=== PATIENT | female | born 1940 | race Caucasian/White ===

== ENCOUNTER 2018-06-07 16:23 | Inpatient (IN) | payer OTHER ==
--- NOTE | 2018-06-07 16:58 | PDOC ---
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 She was sent from [facility] today because despite oral vancomycin treatment, she continues to have multiple loose stools per day. Sr Summers states that the diarrhea is her only current medical problem. She reports about 7 bowel movements per day; she denies any abdominal pain, fevers, nausea or vomiting. She reports that she has been taking medication for the diarrhea but that it has not helped at all. She has no other complaints. Per notes sent from [facility], Sr Summers initially improved on a course of oral vancomycin but again had several episodes of watery diarrhea yesterday despite continued treatment. She additionally was noted to be hypotensive this morning, though her BP was not recorded in the note. Notes by Dr Levin, her PMD, report recent weight loss as well. Past History - Past Medical History Allergies/Adverse Reactions: Allergies Allergy/AdvReac Type Severity Reaction Status Date / Time No Known Allergies Allergy Verified 06/07/18 17:01 Review of Systems - Review of Systems Comments:: General: No fevers, no chills, no weight or appetite change, no malaise HEENT: No changes in vision, no changes in hearing, no congestion, no sore throat CV: No chest pain, no palpitations, no LE edema Pulm: No SOB, no cough, no wheezing GI: No nausea or vomiting. +cdiff : No frequency, no urgency, no dysuria Musc: No back pain, no joint swelling. +frequent falls Skin: No rash, no lesions, no erythema Endo: No excessive thirst, no heat/cold intolerance. h/o hypoparathyroidism Heme: No unusual bruising or bleeding, no swollen glands Neuro: No syncope, no numbness/tingling, no focal weakness Vasc: No claudication Psych: No recent change in mood, no SI or HI. +h/o bipolar *Physical Exam - Physical Exam Comments: General: Comfortable, no acute distress HEENT: PERRL, EOMI, MMM, voice normal, normal neck ROM Cards: RRR, no murmur appreciated Pulm: Comfortable on room air, clear to auscultation bilaterally Abd: Soft, nontender, nondistended Ext: 1+ pitting BLE edema. ROM intact. Strength 5/5 and equal bilaterally Vasc: Extremities WWP. Palpable radial and pedal pulses bilaterally Neuro: A&Ox3, CN grossly intact, speech slow but logical, motor/sensory grossly intact and symmetric. 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 She has been receiving treatment since late April but continues to have multiple episodes of diarrhea per day. - Labs including confirmatory test for cdiff sent from [facility] - Will recheck CBC and electrolytes as previous labs from 04/22/18 - Will call [facility] to discuss with PMD 06/07/18 18:03 - Dr Levin could not be reached, will plan to admit to obs for ID consult mentioned in progress note from earlier today. - Hospitalist paged for admission 06/07/18 20:31 - Labs returned, CBC unremarkable. BMP notable for potassium 2.8. Given 40mEq PO potassium in ED - Signed out patient to medicine team. Will order EKG, CXR, 1L NS bolus while waiting for available bed on floor. Discussed with Dr Ashton. *DC/Admit/Observation/Transfer Diagnosis at time of Disposition: Clostridium difficile diarrhea, Hypokalemia - Discharge Dispostion Decision to Admit order: Yes - Referrals Referrals: Abel Levin MD [Primary Care Provider] - - Patient Instructions - Post Discharge Activity
--- NOTE | 2018-06-07 19:03 | PDOC ---
Attending Attestation - HPI HPI: 06/07/18 19:11 The patient is a 77 year old female, with a significant past medical history of CKD, HTN, GERD, Polio w/ residual weakness, hypoparathyroidism, Cdiff (04/22/18) , who presents to the emergency department via EMS from [facility] with persistent diarrhea despite treatment with vancomycin and flagyl for C.diff diagnosed 28 days ago. As per the [place] records, the patient was sent here for evaluation by infectious disease. The patient denies chest pain, shortness of breath, headache and dizziness. The patient denies fever, chills, nausea, vomit, and constipation.The patient denies dysuria, frequency, urgency and hematuria. 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 No toxic habits. PCP - Dr. Levin - Physicial Exam PE: 06/07/18 19:13 GENERAL: Well developed, well nourished. Awake and alert. No acute distress. HEENT: Normocephalic, atraumatic. PERRLA, EOMI. No conjunctival pallor. Sclera are non- icteric. Moist mucous membranes. Oropharynx is clear. NECK: Supple. Full ROM. No JVD. Carotid pulses 2+ and symmetric, without bruits. No thyromegaly. No lymphadenopathy. CARDIOVASCULAR: Regular rate and rhythm. No murmurs, rubs, or gallops. Distal pulses are 2+ and symmetric. PULMONARY: No evidence of respiratory distress. Lungs clear to auscultation bilaterally. No wheezing, rales or rhonchi. ABDOMINAL: +slightly protuberant. Soft. Non-tender. Non-distended. No rebound or guarding. No organomegaly. Normoactive bowel sounds. MUSCULOSKELETAL Normal range of motion at all joints. No bony deformities or tenderness. No CVA tenderness. EXTREMITIES: No cyanosis. No clubbing. No edema. No calf tenderness. SKIN: Warm and dry. Normal capillary refill. No rashes. No jaundice. NEUROLOGICAL: Alert, awake, appropriate. Cranial nerves 2-12 intact. Normoreflexic in the upper and lower extremities. Normal speech. Toes are down-going bilaterally. Gait is normal without ataxia. PSYCHIATRIC: Cooperative. Good eye contact. Appropriate mood and affect. - Medical Decision Making 06/07/18 19:13 Documentation prepared by Stacey Valentine, acting as medical social consultant for Brittany Ashton MD/ <Stacey Valentine - Last Filed: 06/07/18 19:11> - Resident Resident Name: Blanca Mensah - ED Attending Attestation I have performed the following: I have examined & evaluated the patient, The case was reviewed & discussed with the resident, I agree w/resident's findings & plan, Exceptions are as noted - Medical Decision Making K=2.8 and is being treated 06/07/18 19:51 plan ADMIT med/surg 06/07/18 20:05 <Brittany Ashton - Last Filed: 06/07/18 20:05>
[2018-06-07 19:19] LABS: HEMATOCRIT 38.9 % (32.4-45.2); HEMOGLOBIN 13.1 GM/dL (10.7-15.3); MCH 30.3 pg (25.7-33.7); MCHC 33.7 g/dl (32.0-36.0); MEAN CELL VOLUME 90.1 fl (80-96); MEAN PLT VOLUME 8.9 fl (7.5-11.1); PLATELET COUNT 173 K/MM3 (134-434); RBC 4.32 M/mm3 (3.60-5.2); RDW 14.1 % (11.6-15.6); WHITE BLOOD COUNT 5.6 K/mm3 (4.0-10.0)
[2018-06-07 19:48] LABS: ANION GAP 9 (8-16); BLOOD UREA NITROGEN 20 mg/dL (7-18); CALCIUM 9.2 mg/dL (8.5-10.1); CHLORIDE 114 mmol/L (98-107); CO2 22 mmol/L (21-32); CREATININE 1.9 mg/dL (0.55-1.02); GLUCOSE,RANDOM 87 mg/dL (74-106); MAGNESIUM 2.1 mg/dL (1.8-2.4); PHOSPHOROUS 2.8 mg/dL (2.5-4.9); SODIUM 145 mmol/L (136-145)
[2018-06-07 19:57] LABS: POTASSIUM 2.8 mmol/L (3.5-5.1)
[2018-06-07] MEDS ORDERED: POTASSIUM CHLORIDE TABS 20 MEQ TABLET.ER (FP) PO ONE (19:58)
[2018-06-07] MEDS ORDERED: POTASSIUM CHLORIDE ORAL LIQUID 20 MEQ/15 ML PO ONE (20:00)
[2018-06-07] MEDS ORDERED: POTASSIUM CHLORIDE ORAL LIQUID 20 MEQ/15 ML ONE (20:06)
[2018-06-07] MEDS ORDERED: SODIUM CHLORIDE 0.9% 500 ML INFUS.BAG IV ONE (20:13)
--- NOTE | 2018-06-07 21:45 | HP ---
CHIEF COMPLAINT: watery diarrhea, on PO vanco for confirmed C-dif PCP: Dr. Levin HISTORY OF PRESENT ILLNESS: 77 yo female with significant PMH of recent C-dif (04/22 refractory to flagyl, has now received 28 days po vanco), HTN, Bipolar disorder, Primary hypoparathyroidism, GERD, polio w/ residual weakness, glaucoma, and CKD presents to the ED from [facility] with complaint of watery diarrhea yesterday and today that is worse than her recent baseline. 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 She was awake in bed and alert as well as following commands and reacting to me and smiling, though she did not answer any questions while I was seeing her. She comes today due to presumed refractory C-dif. She was originally diagnosed in April and placed on Flagyl, which failed. She has now been on oral vanco for 28 days. The [place] record states that she was improving, however yesterday she began having worsening watery diarrhea X7. She was sent here by her primary in order to have an ID consult. 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 Family History: Allergies No Known Allergies Allergy (Verified 06/07/18 17:01) HOME MEDICATIONS: REVIEW OF SYSTEMS CONSTITUTIONAL: weight change Absent: fever, chills, diaphoresis, generalized weakness, malaise, loss of appetite, HEENT: Absent: rhinorrhea, nasal congestion, throat pain, throat swelling, difficulty swallowing, mouth swelling, ear pain, eye pain, visual changes CARDIOVASCULAR: Absent: chest pain, syncope, palpitations, irregular heart rate, lightheadedness , peripheral edema RESPIRATORY: Absent: cough, shortness of breath, dyspnea with exertion, orthopnea, wheezing, stridor, hemoptysis GASTROINTESTINAL: diarrhea Absent: abdominal pain, abdominal distension, nausea, vomiting, , constipation, melena, hematochezia GENITOURINARY: Absent: dysuria, frequency, urgency, hesitancy, hematuria, flank pain, genital pain MUSCULOSKELETAL: Absent: myalgia, arthralgia, joint swelling, back pain, neck pain SKIN: Absent: rash, itching, pallor HEMATOLOGIC/IMMUNOLOGIC: Absent: easy bleeding, easy bruising, lymphadenopathy, frequent infections ENDOCRINE: Absent: unexplained weight gain, unexplained weight loss, heat intolerance, cold intolerance NEUROLOGIC: Absent: headache, focal weakness or paresthesias, dizziness, unsteady gait, seizure, mental status changes, bladder or bowel incontinence PSYCHIATRIC: Absent: anxiety, depression, suicidal or homicidal ideation, hallucinations. PHYSICAL EXAMINATION Vital Signs - 24 hr 06/07/18 16:40 Temperature 98.7 F Pulse Rate 52 L Respiratory 16 Rate Blood Pressure 120/79 O2 Sat by Pulse 100 Oximetry (%) GENERAL: Awake and alert, no acute distress HEAD: Normocephalic, atraumatic. EYES: PERRL, no scleral icterus EARS, NOSE, THROAT: oropharynx clear without exudates. Moist mucous membranes. NECK: supple without lymphadenopathy LUNGS: CTA b/l, no crackles or wheezes HEART: Regular rate and rhythm, normal S1 and S2 without murmur, rub or gallop. ABDOMEN: Soft, nontender to palpation, normoactive bowel sounds MUSCULOSKELETAL: No bony deformities or tenderness. No CVA tenderness. UPPER EXTREMITIES: 2+ pulses, warm, well-perfused. No cyanosis. No clubbing. No peripheral edema. LOWER EXTREMITIES: 2+ pulses, warm, well-perfused. No calf tenderness. No peripheral edema. NEUROLOGICAL: Cranial nerves II-XII grossly intact. Not speaking to me, though reported normal earlier. SKIN: Warm, dry, normal turgor, no rashes or lesions noted Laboratory Results - last 24 hr 06/07/18 06/07/18 07:01 07:01 WBC 5.6 RBC 4.32 Hgb 13.1 Hct 38.9 MCV 90.1 MCH 30.3 MCHC 33.7 RDW 14.1 Plt Count 173 MPV 8.9 Sodium 145 Potassium 2.8 L* Chloride 114 H Carbon Dioxide 22 Anion Gap 9 BUN 20 H Creatinine 1.9 H Creat Clearance w eGFR 25.70 Random Glucose 87 Calcium 9.2 Phosphorus 2.8 Magnesium 2.1 ASSESSMENT/PLAN: 77 yo female with diagnosed C-dif in April on PO Vanco, PMH HTN, Bipolar disorder , Primary hypoparathyroidism, GERD, polio w/ residual weakness, glaucoma, and CKD, placed in observation for ID consult for chronic diarrhea, possibly refractory C-dif vs other bacterial or parasitic causes. Recurrent Diarrhea -Could be refractory c-dif or other bacterial vs parasitic causes -ID consult ordered -Stool ova and parasites -consider E. coli, Shigella, salmonella -Cdif toxin and Ag -Could also be inflammatory though less likely with recent hx C-dif -stool leukocytes -CBC with differential to check for eosinophilia -Restart current dose of Vanco 250 mg PO Q6 -add flagyl 500 mg IV Q8 for broader coverage TARA -vs CKD -Cr 1.9 -Fluid resuscitation -Renal US -Urine lytes - Hypokalemia -K 2.8 -Given 40 mEq PO in ED -Repleting in fluids -ECG ordered -BMP in AM FEN -Fluids: 1L NS in ED, NS @ 75 cc/hr -Electrolytes: as above, replete, BMP in AM -Nutrition: Regular diet DVT Prophylaxis -Heparin 5000 units SQ TID Disposition Observation until ID recommendation Visit type - Emergency Visit Emergency Visit: Yes ED Registration Date: 06/07/18 Care time: The patient presented to the Emergency Department on the above date and was hospitalized for further evaluation of their emergent condition. - New Patient This patient is new to me today: Yes Date on this admission: 06/08/18 - Critical Care Critical Care patient: No Hospitalist Screening - Colonoscopy Questionnaire Colonoscopy Questionnaire: Colonoscopy Questionnaire - Patient: 50 - 75 years old and never had a screening colonoscopy: No History of colon or rectal polyps, or CA: No History of IBD, Crohn's disease or UC: No History of abdominal radiation therapy as a child: No - Relative: 1 with colon or rectal CA, or polyps at age 60 or younger: No Colon or rectal CA diagnosed at age 45 or younger: No Multiple relatives with colon or rectal CA: No - Outcome: Screening Result: Negative Screen
[2018-06-07] MEDS ORDERED: CHOLESTYRAMINE/ASPARTAME 4 GM PACKET PO SCH (22:00)
[2018-06-07] MEDS ORDERED: SERTRALINE HCL 50 MG TABLET (FP) PO SCH (22:00)
[2018-06-08] MEDS ORDERED: VANCOMYCIN 250 MG/5 ML ORAL SOLUTION PO SCH
[2018-06-08] MEDS ORDERED: HEPARIN NA (PORCINE) 5,000 UNITS/ML 1ML VIAL ONE (00:24)
[2018-06-08] MEDS: LATANOPROST 0.005% OPHTH SOLN 2.5ML BOTTLE OU SCH ×2 (02:05→21:24)
[2018-06-08] MEDS: SERTRALINE HCL 50 MG, SERTRALINE HCL 25 MG PO SCH ×2 (02:06→22:34)
[2018-06-08] MEDS: risperiDONE 0.5 MG TABLET (FP) PO SCH ×2 (02:06→21:24)
--- NOTE | 2018-06-08 03:43 | PN ---
Teaching Attending Note Name of Resident: Francesco Vasquez ATTENDING PHYSICIAN STATEMENT I saw and evaluated the patient. Chart, data, imaging reviewed. I reviewed the resident's note and discussed the case with the resident. I agree with the resident's findings and plan as documented. SUBJECTIVE: 77yo woman with a PMH of CKD, HTN, bipolar disorder, primary hypoparathyroidism , GERD, frequent falls, h/o polio with residual weakness, glaucoma and diagnosis of cdiff colitis diagnosed in [place] on 04/22/18 s/p 10 days of flagyl and then switched to PO vancomycin up until the present. Patient had worsening of her diarrhea with up to 7 BM per day and thus was brought to the hospital. There is no hx of recent travels or exotic foods. OBJECTIVE: Last Vital Signs Temp Pulse Resp BP Pulse Ox 98.5 F 89 19 118/78 100 06/08/18 02:09 06/08/18 02:09 06/08/18 02:09 06/08/18 02:09 06/07/18 16:40 general -nad, no resp distress heent- dry oral mucosa, blackish tongue, poor oral hygiene neck -supple cv-s1+s2+rrr chest- cta b/l abdomen- soft, nt, hyperactive bowel sounds ext- no pedal edema Abnormal Lab Results 06/07/18 07:01 Potassium 2.8 L* Chloride 114 H BUN 20 H Creatinine 1.9 H ekg - reviewed by me- nsr cxr - reviewed by me ASSESSMENT AND PLAN: 77yo woman with persistent diarrhea- cdiff colitis was diagnosed at [place], currently with worsening symptoms despite po vancomycin #Diarrhea-chronic, presumed to be secondary to severe cdiff, possible treatment failure, r/o other causes including bacterial, viral, parasitic. -send stool culture, wbc, O,P -send stool for Cdiff pcr -send CBC with dif -IV fluid hydration -BRAT diet -ID consult -contact isolation, strict handwashing -PO vancomycin 250mg PO q6hrs , metronidazole 500mg IV q8hrs #Hypokalemia -likely secondary to diarrhea, no EKG changes seen on EKG -replete K -recheck chemistry panel -telemetry for now # TARA vs CKD - unknown baseline cr. May be TARA- prerenal 2/2 to volume depletion from diarrhea -IV fluid hydration -send urine lytes, cr -i/o , daily weights -avoid nephrotoxic meds -renal u/s -dvt ppx- heparin sc -c/w chronic home medications
[2018-06-08 05:01] LABS: URINE APPEARANCE CLEAR; URINE BILIRUBIN NEGATIVE (<2.0 mg/dL); URINE COLOR LTYELLOW; URINE GLUCOSE (UA) NEGATIVE (NEGATIVE); URINE KETONE NEGATIVE (NEGATIVE); URINE LEUK ESTERASE NEGATIVE (NEGATIVE); URINE NITRITE NEGATIVE (NEGATIVE); URINE PROTEIN NEGATIVE (NEGATIVE); URINE UROBILINOGEN NEGATIVE mg/dL (0.2-1.0)
[2018-06-08] MEDS: SODIUM CHLORIDE 0.9%/KCL 20 MEQ/1,000 ML INFUS.BAG IV SCH ×2 (05:20→22:38)
[2018-06-08] MEDS: HEPARIN NA (PORCINE) 5,000 UNITS/ML 1ML VIAL SQ SCH ×4 (05:59→21:23)
[2018-06-08] MEDS: MAG HYDROX/ALH/SMC/DPHA/LIDO 240 ML MOUTHWASH MM SCH ×4 (06:02→19:00)
[2018-06-08] MEDS: VANCOMYCIN 250 MG/5 ML ORAL SOLUTION PO SCH ×4 (06:14→19:00)
[2018-06-08 07:07] VITALS: BMI 21.2
[2018-06-08 08:57] LABS: BASO % 0.2 % (0-2.0); EOS % 0.3 % (0-4.5); HEMATOCRIT 34.2 % (32.4-45.2); HEMOGLOBIN 11.6 GM/dL (10.7-15.3); LYMPH % 13.5 % (8-40); MCH 30.6 pg (25.7-33.7); MCHC 33.8 g/dl (32.0-36.0); MEAN CELL VOLUME 90.7 fl (80-96); MONO % 21.4 % (3.8-10.2); NEUT % 64.6 % (42.8-82.8); PLATELET COUNT 139 K/MM3 (134-434); RBC 3.77 M/mm3 (3.60-5.2); RDW 14.6 % (11.6-15.6); WHITE BLOOD COUNT 6.2 K/mm3 (4.0-10.0)
[2018-06-08 09:04] LABS: ANION GAP 8 (8-16); BLOOD UREA NITROGEN 20 mg/dL (7-18); CALCIUM 8.8 mg/dL (8.5-10.1); CHLORIDE 120 mmol/L (98-107); CO2 20 mmol/L (21-32); CREATININE 1.7 mg/dL (0.55-1.02); GLUCOSE,RANDOM 89 mg/dL (74-106); PHOSPHOROUS 2.7 mg/dL (2.5-4.9); SODIUM 148 mmol/L (136-145)
[2018-06-08] MEDS: amLODIPine BESYLATE 10 MG TABLET (FP) PO SCH (10:32)
[2018-06-08] MEDS: LACTOBACILLUS ACIDOPHILUS 1 TABLET PO SCH ×2 (10:32→19:04)
[2018-06-08] MEDS: RANITIDINE HCL 150 MG TABLET (FP) PO SCH (10:32)
[2018-06-08] MEDS: CYANOCOBALAMIN 1,000 MCG TABLET (FP) PO SCH (10:33)
[2018-06-08] MEDS ORDERED: PT OWN MED DRAWER 7, Y5N ONE ×2 (12:10→12:23)
--- NOTE | 2018-06-08 13:15 | PN ---
Progress Note (short form) - Note Progress Note: ID Consult dictated Probable recurrent C difficile Vancomycin 125mg po qid Contact precautions
[2018-06-08 15:10] LABS: ANISOCYTOSIS 1+; MACROCYTOSIS 0; PLATELET ESTIMATE DECREASED
--- NOTE | 2018-06-08 16:26 | EKG ---
Test Reason : Blood Pressure : / mmHG Vent. Rate : 087 BPM Atrial Rate : 087 BPM P-R Int : 158 ms QRS Dur : 088 ms QT Int : 372 ms P-R-T Axes : 056 035 -67 degrees QTc Int : 447 ms NORMAL SINUS RHYTHM CANNOT RULE OUT ANTERIOR INFARCT , AGE UNDETERMINED ABNORMAL ECG WHEN COMPARED WITH ECG OF 08-JUN-2018 00:57, NONSPECIFIC T WAVE ABNORMALITY NOW EVIDENT IN ANTERIOR LEADS Confirmed by Chris Schneider MD ([id number]) on 06/08/2018 4:26:02 PM Referred By: Confirmed By:Chris Schneider MD
--- NOTE | 2018-06-08 16:26 | EKG ---
Test Reason : Blood Pressure : / mmHG Vent. Rate : 078 BPM Atrial Rate : 078 BPM P-R Int : 152 ms QRS Dur : 086 ms QT Int : 378 ms P-R-T Axes : 063 052 051 degrees QTc Int : 430 ms NORMAL SINUS RHYTHM NONSPECIFIC ST AND T WAVE ABNORMALITY ABNORMAL ECG NO PREVIOUS ECGS AVAILABLE Confirmed by Chris Schneider MD ([id number]) on 06/08/2018 4:26:07 PM Referred By: Confirmed By:Chris Schneider MD
--- NOTE | 2018-06-08 17:36 | PN ---
Teaching Attending Note Name of Resident: Andrea Stephen ATTENDING PHYSICIAN STATEMENT I saw and evaluated the patient. I reviewed the resident's note and discussed the case with the resident. I agree with the resident's findings and plan as documented. SUBJECTIVE:conitnues to have loose BM reports 12 epiosdes. assoc adbominal distention. no episodes in the past. denies Cp, SOB, fever, chills, N/V no recent changes to medication OBJECTIVE: Last Vital Signs Temp Pulse Resp BP Pulse Ox 98 F 84 20 120/70 97 06/08/18 08:00 06/08/18 08:00 06/08/18 08:00 06/08/18 08:00 06/08/18 06:00 general NAD CV S1 S2 RRR no murmrur/rub/gallop Lungs CTA B/L no wheezing Abdomen soft NT slightly distended. normoactive BS ASSESSMENT AND PLAN: 77yo F wtih PMH CKD, HTN, bipolar, frequent falls presenting with diarrhea for 6 weeks already treated with 2 courses of Flagyl and started on vanco po with no improvement 1. Persistent diarrhea- probable recurrent cdiff however also consider malabsorption disorders. pt reports 12 episodes all loose, however RN reports only 1 since she came from the ER and it was semi-formed. Cdiff sent. vanco po, flagyl IV. contact precautions. ID consulted. will consider GI eval if doesnt imrpove. check stool for fecal fat. colonscopy 4 years ago +polyps which she reports as benign 2. Hypokalemia- due to diarrhea. replete 3. TAAR- due to dehydration. IVF. monitor. renal u/s pending. avoid nephrotoxic agents 4. HTN- controlled. cont home meds 5. bipolar- no signs of manic episode. cont home medications 6. DVT ppx- Hep sq
[2018-06-08] MEDS: DIVALPROEX NA *ER* EXTEND REL 250 MG TABLET.SA PO SCH (19:04)
[2018-06-08] MEDS: TIMOLOL MALEATE 0.5% GFS OPHTHALMIC SOLN 5 ML BOTTLE OU SCH (19:05)
--- NOTE | 2018-06-08 20:31 | PN ---
Physical Exam: SUBJECTIVE: Patient seen and examined and bedside. pt still having loose BM. says 7-12 epiosdes w/ feeling bloated. denies Fever, chills, CP, SOB, N/V, urinary sxs OBJECTIVE: Vital Signs Period Temp Pulse Resp BP Sys/St Pulse Ox Last 24 Hr 97.5 F-98.5 F 74-89 18-20 115-142/63-78 97-97 GENERAL: Awake and alert, no acute distress HEAD: NCAT EYES: PERRL, no scleral icterus EARS, NOSE, THROAT: MMM NECK: supple without lymphadenopathy LUNGS: CTA b/l, no crackles or wheezes HEART: RRR normal S1 and S2 without murmur, rub or gallop. ABDOMEN: Soft, mild distension, nontender to palpation, +BS MUSCULOSKELETAL: No bony deformities or tenderness. UPPER EXTREMITIES: 2+ pulses, warm, well-perfused. No cyanosis. No clubbing. No peripheral edema. LOWER EXTREMITIES: 2+ pulses, warm, well-perfused. No calf tenderness. No peripheral edema. NEUROLOGICAL: Cranial nerves II-XII grossly intact. SKIN: Warm, dry, normal turgor, no rashes or lesions noted Laboratory Results - last 24 hr 06/08/18 06/08/18 06/08/18 04:31 04:31 07:00 WBC RBC Hgb Hct MCV MCH MCHC RDW Plt Count MPV Absolute Neuts (auto) Neutrophils % Neutrophils % (Manual) Band Neutrophils % Lymphocytes % Lymphocytes % (Manual) Monocytes % Monocytes % (Manual) Eosinophils % Eosinophils % (Manual) Basophils % Basophils % (Manual) Myelocytes % (Man) Promyelocytes % (Man) Blast Cells % (Manual) Nucleated RBC % Metamyelocytes Hypochromia Platelet Estimate Polychromasia Poikilocytosis Anisocytosis Microcytosis Macrocytosis Sodium 148 H Potassium 3.0 L Chloride 120 H Carbon Dioxide 20 L Anion Gap 8 BUN 20 H Creatinine 1.7 H Creat Clearance w eGFR 29.22 Random Glucose 89 Calcium 8.8 Phosphorus 2.7 Magnesium 2.0 Urine Color Ltyellow Urine Appearance Clear Urine pH 5.0 Ur Specific [place] 1.010 Urine Protein Negative Urine Glucose (UA) Negative Urine Ketones Negative Urine Blood Negative Urine Nitrite Negative Urine Bilirubin Negative Urine Urobilinogen Negative Ur Leukocyte Esterase Negative Ur Random Sodium 18 Ur Random Potassium 11.8 Ur Random Chloride 52 08/07/18 08/07/18 07:00 12:25 WBC 6.2 RBC 3.77 Hgb 11.6 Hct 34.2 MCV 90.7 MCH 30.6 MCHC 33.8 RDW 14.6 Plt Count 139 MPV 9.0 Absolute Neuts (auto) 4.0 Neutrophils % 64.6 Neutrophils % (Manual) 61.9 Band Neutrophils % 2.1 Lymphocytes % 13.5 Lymphocytes % (Manual) 12.4 Monocytes % 21.4 H Monocytes % (Manual) 22 H Eosinophils % 0.3 Eosinophils % (Manual) 0.0 Basophils % 0.2 Basophils % (Manual) 1.0 Myelocytes % (Man) 1 Promyelocytes % (Man) 0 Blast Cells % (Manual) 0 Nucleated RBC % 0 Metamyelocytes 0 Hypochromia 0 Platelet Estimate Decreased Polychromasia 0 Poikilocytosis 0 Anisocytosis 1+ Microcytosis 1+ Macrocytosis 0 Sodium Cancelled Potassium Cancelled Chloride Cancelled Carbon Dioxide Cancelled Anion Gap Cancelled BUN Cancelled Creatinine Cancelled Creat Clearance w eGFR Cancelled Random Glucose Cancelled Calcium Cancelled Phosphorus Magnesium Urine Color Urine Appearance Urine pH Ur Specific [place] Urine Protein Urine Glucose (UA) Urine Ketones Urine Blood Urine Nitrite Urine Bilirubin Urine Urobilinogen Ur Leukocyte Esterase Ur Random Sodium Ur Random Potassium Ur Random Chloride Active Medications Generic Name Dose Route Start Last Admin Trade Name Freq PRN Reason Stop Dose Admin Amlodipine Besylate 10 mg 06/08/18 10:00 06/08/18 10:32 Norvasc - PO 10 mg DAILY ZAINAB Administration Cyanocobalamin 1,000 mcg 06/08/18 10:00 06/08/18 10:33 Vitamin B12 - PO 1,000 mcg DAILY ZAINAB Administration Divalproex Sodium 500 mg 06/09/18 10:00 Depakote *Er* - PO DAILY ZAINAB Heparin Sodium (Porcine) 5,000 unit 06/07/18 20:45 06/08/18 13:47 Heparin - SQ 5,000 unit TID ZAINAB Administration Potassium Chloride/Sodium Chloride 20 meq in 1,000 mls @ 100 mls/hr 06/08/18 03:15 06/08/18 05:20 Ns+20 Meq Kcl - IV 100 mls/hr ASDIR ZAINAB Administration Metronidazole 500 mg in 100 mls @ 100 mls/hr 06/08/18 06:00 08/07/18 18:09 Flagyl 500mg Premixed Ivpb - IVPB 100 mls/hr Q8H-IV ZAINAB Administration Lactobacillus Acidophilus 1 tab 06/07/18 20:45 06/08/18 19:04 Bacid - PO Not Given DAILY ZAINAB Latanoprost 1 drop 06/07/18 22:00 06/08/18 02:05 Xalatan 0.005% Eye Drops - OU 1 drop HS ZAINAB Administration Lidocaine/Aluminum/Magnesium/Simeth 5 ml 06/08/18 06:00 06/08/18 19:00 Magic Mouthwash *Sjr Formula* - MM 5 ml Q6HPO ZAINAB Administration Ranitidine HCl 75 mg 06/08/18 10:00 06/08/18 10:32 Zantac - PO 75 mg DAILY ZAINAB Administration Risperidone 0.75 mg 06/07/18 22:00 06/08/18 02:06 Risperdal - PO 0.75 mg HS ZAINAB Administration Sertraline HCl 50 mg/ 75 mg 06/07/18 22:00 06/08/18 02:06 Sertraline HCl 25 mg PO 75 mg HS ZAINAB Administration Timolol Maleate 1 drop 06/09/18 10:00 Timoptic Xe 0.5% OU DAILY ZAINAB Vancomycin HCl 250 mg 06/08/18 06:00 06/08/18 19:00 Vancomycin Oral Solution PO 250 mg Q6HPO ZAINAB Administration ASSESSMENT/PLAN: 77 yo female with 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 . #Recurrent Diarrhea - possibly having refractory C-dif vs other bacterial or parasitic causes. consider malabsorption disorders. pt reports 7-12 episodes all loose. Nurse reports 1 since pt came up from the ED -ID consult -Stool ova and parasites -consider E. coli, Shigella, salmonella -Cdif toxin and Ag - negative -PCR for C diff -Could also be inflammatory though less likely with recent hx C-dif -stool leukocytes -CBC with differential to check for eosinophilia -Restart current dose of Vanco 250 mg PO Q6 -flagyl 500 mg IV Q8 for broader coverage -consider GI eval if doesn't improve -check stool for fecal fat. -colonscopy 4 years ago w/ polyps which pt reports as benign -Contact precautions #TARA on CKD- 2/2 dehydration. -Cr 1.9 -IV fluids -Renal US - b/l chronic kidney disease changes -Urine lytes - -avoid nephrotoxic agents Hypokalemia - 2/2 diarrhea -K 2.8 ...3 at 6am -Given 40 mEq PO in ED -Repleting in fluids -ECG ordered -BMP in AM #bipolar- no signs of manic episode. -c/w home meds #HTN- controlled -c/w home meds #FEN -Fluids: 1L NS in ED, NS @ 75 cc/hr w/ K 20meq -Electrolytes: as above, replete, BMP in AM -Nutrition: Regular diet DVT Prophylaxis -Heparin 5000 units SQ TID Disposition -medsurg Visit type - Emergency Visit Emergency Visit: Yes ED Registration Date: 06/07/18 Care time: The patient presented to the Emergency Department on the above date and was hospitalized for further evaluation of their emergent condition. - New Patient This patient is new to me today: Yes Date on this admission: 06/08/18 - Critical Care Critical Care patient: No
[2018-06-09] MEDS: VANCOMYCIN 250 MG/5 ML ORAL SOLUTION PO SCH ×5 (00:09→23:03)
[2018-06-09] MEDS: MAG HYDROX/ALH/SMC/DPHA/LIDO 240 ML MOUTHWASH MM SCH ×5 (00:09→23:03)
[2018-06-09] MEDS: SODIUM CHLORIDE 0.9%/KCL 20 MEQ/1,000 ML INFUS.BAG IV SCH ×2 (06:12→10:49)
[2018-06-09] MEDS: HEPARIN NA (PORCINE) 5,000 UNITS/ML 1ML VIAL SQ SCH ×3 (06:12→21:32)
--- NOTE | 2018-06-09 08:39 | PN ---
Physical Exam: SUBJECTIVE: Patient seen and examined and bedside. pt still having loose BM. says 20 episodes w/ feeling bloated. per nurse, had 2 episodes of diarrhea. denies Fever, chills, CP, SOB, N/V, urinary sxs OBJECTIVE: Vital Signs Period Temp Pulse Resp BP Sys/St Pulse Ox Last 24 Hr 97.5 F-98.1 F 74-83 18-20 130-142/69-74 GENERAL: Awake and alert, no acute distress HEAD: NCAT EYES: PERRL, no scleral icterus EARS, NOSE, THROAT: some difficulty hearing at baseline. MMM NECK: supple without lymphadenopathy LUNGS: CTA b/l, no crackles or wheezes HEART: RRR normal S1 and S2 without m/r/g ABDOMEN: Soft, mild distension, nontender to palpation, +BS MUSCULOSKELETAL: No bony deformities or tenderness. UPPER EXTREMITIES: 2+ pulses, warm, well-perfused. No cyanosis. No clubbing. No peripheral edema. LOWER EXTREMITIES: 2+ pulses, warm, well-perfused. No calf tenderness. R foot mild selling NEUROLOGICAL: Cranial nerves II-XII grossly intact. SKIN: Warm, dry, normal turgor, no rashes or lesions noted Laboratory Results - last 24 hr 06/08/18 06/08/18 06/08/18 07:00 07:00 12:25 WBC 6.2 RBC 3.77 Hgb 11.6 Hct 34.2 MCV 90.7 MCH 30.6 MCHC 33.8 RDW 14.6 Plt Count 139 MPV 9.0 Absolute Neuts (auto) 4.0 Neutrophils % 64.6 Neutrophils % (Manual) 61.9 Band Neutrophils % 2.1 Lymphocytes % 13.5 Lymphocytes % (Manual) 12.4 Monocytes % 21.4 H Monocytes % (Manual) 22 H Eosinophils % 0.3 Eosinophils % (Manual) 0.0 Basophils % 0.2 Basophils % (Manual) 1.0 Myelocytes % (Man) 1 Promyelocytes % (Man) 0 Blast Cells % (Manual) 0 Nucleated RBC % 0 Metamyelocytes 0 Hypochromia 0 Platelet Estimate Decreased Polychromasia 0 Poikilocytosis 0 Anisocytosis 1+ Microcytosis 1+ Macrocytosis 0 Sodium 148 H Cancelled Potassium 3.0 L Cancelled Chloride 120 H Cancelled Carbon Dioxide 20 L Cancelled Anion Gap 8 Cancelled BUN 20 H Cancelled Creatinine 1.7 H Cancelled Creat Clearance w eGFR 29.22 Cancelled Random Glucose 89 Cancelled Calcium 8.8 Cancelled Phosphorus 2.7 Magnesium 2.0 Active Medications Generic Name Dose Route Start Last Admin Trade Name Weiq PRN Reason Stop Dose Admin Amlodipine Besylate 10 mg 06/08/18 10:00 06/08/18 10:32 Norvasc - PO 10 mg DAILY ZAINAB Administration Cyanocobalamin 1,000 mcg 06/08/18 10:00 06/08/18 10:33 Vitamin B12 - PO 1,000 mcg DAILY ZAINAB Administration Divalproex Sodium 500 mg 06/09/18 10:00 Depakote *Er* - PO DAILY ZAINAB Heparin Sodium (Porcine) 5,000 unit 06/07/18 20:45 06/09/18 06:12 Heparin - SQ 5,000 unit TID ZAINAB Administration Potassium Chloride/Sodium Chloride 20 meq in 1,000 mls @ 100 mls/hr 06/08/18 03:15 06/09/18 06:12 Ns+20 Meq Kcl - IV Not Given ASDIR ZAINAB Metronidazole 500 mg in 100 mls @ 100 mls/hr 06/08/18 06:00 06/09/18 01:22 Flagyl 500mg Premixed Ivpb - IVPB 100 mls/hr Q8H-IV ZAINAB Administration Lactobacillus Acidophilus 1 tab 06/07/18 20:45 06/08/18 19:04 Bacid - PO Not Given DAILY ZAINAB Latanoprost 1 drop 06/07/18 22:00 06/08/18 21:24 Xalatan 0.005% Eye Drops - OU 1 drop HS ZAINAB Administration Lidocaine/Aluminum/Magnesium/Simeth 5 ml 06/08/18 06:00 06/09/18 06:11 Magic Mouthwash *Sjr Formula* - MM 5 ml Q6HPO ZAINAB Administration Ranitidine HCl 75 mg 06/08/18 10:00 06/08/18 10:32 Zantac - PO 75 mg DAILY ZAINAB Administration Risperidone 0.75 mg 06/07/18 22:00 06/08/18 21:24 Risperdal - PO 0.75 mg HS ZAINAB Administration Sertraline HCl 50 mg/ 75 mg 06/07/18 22:00 06/08/18 22:34 Sertraline HCl 25 mg PO 75 mg HS ZAINAB Administration Timolol Maleate 1 drop 06/09/18 10:00 Timoptic Xe 0.5% OU DAILY ZAINAB Vancomycin HCl 250 mg 06/08/18 06:00 06/09/18 06:11 Vancomycin Oral Solution PO 250 mg Q6HPO ZAINAB Administration ASSESSMENT/PLAN: 77 yo female with 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 . #Recurrent Diarrhea - possibly having refractory C-dif vs other bacterial or parasitic causes. consider malabsorption disorders. pt reports having loose BM. says 20 episodes w/ feeling bloated. per nurse, had 2 episodes of diarrhea. clinically improving and tolerating diet -ID consult -Stool ova and parasites -stool fecal fat -consider E. coli, Shigella, salmonella -Cdif toxin and Ag - negative -PCR for C diff -Could also be inflammatory though less likely with recent hx C-dif -stool leukocytes -CBC with differential to check for eosinophilia -c/w Vanco 250 mg PO Q6, day 2 -flagyl 500 mg IV Q8 for broader coverage, day 2 -consider GI eval if doesn't improve -check stool for fecal fat. -colonscopy 4 years ago w/ polyps which pt reports as benign -Contact precautions #TARA on CKD- 2/2 dehydration. -Cr 1.9 -IV fluids -Renal US - b/l chronic kidney disease changes -Urine lytes -d/c -avoid nephrotoxic agents Hypokalemia - 2/2 diarrhea -K 2.8 -replete PO and IV -Repleting in fluids -ECG ordered -BMP in AM #bipolar- no signs of manic episode. -c/w home meds #HTN- controlled -c/w home meds #FEN -Fluids: 1L NS in ED, NS @ 75 cc/hr w/ K 20meq -Electrolytes: as above, replete, BMP in AM -Nutrition: Regular diet DVT Prophylaxis -Heparin 5000 units SQ TID Disposition -medsurg Visit type - Emergency Visit Emergency Visit: Yes ED Registration Date: 06/08/18 Care time: The patient presented to the Emergency Department on the above date and was hospitalized for further evaluation of their emergent condition. - New Patient This patient is new to me today: Yes Date on this admission: 06/09/18 - Critical Care Critical Care patient: No
[2018-06-09 09:13] LABS: CHLORIDE 117 mmol/L (98-107); SODIUM 146 mmol/L (136-145)
[2018-06-09] MEDS ORDERED: PT OWN MED DRAWER 7, Y5N ONE ×3 (09:23→21:29)
[2018-06-09] MEDS: CYANOCOBALAMIN 1,000 MCG TABLET (FP) PO SCH (09:28)
[2018-06-09] MEDS: LACTOBACILLUS ACIDOPHILUS 1 TABLET PO SCH (09:28)
[2018-06-09] MEDS: TIMOLOL MALEATE 0.5% GFS OPHTHALMIC SOLN 5 ML BOTTLE OU SCH (09:29)
[2018-06-09] MEDS: RANITIDINE HCL 150 MG TABLET (FP) PO SCH (09:30)
[2018-06-09] MEDS: amLODIPine BESYLATE 10 MG TABLET (FP) PO SCH (09:30)
[2018-06-09] MEDS: DIVALPROEX NA *ER* EXTEND REL 500 MG TABLET.SA (FP) PO SCH (09:30)
[2018-06-09 11:04] LABS: ALBUMIN 2.4 g/dl (3.4-5.0); ANION GAP 14 (8-16); BLOOD UREA NITROGEN 17 mg/dL (7-18); CALCIUM 8.5 mg/dL (8.5-10.1); CO2 18 mmol/L (21-32); GLUCOSE,RANDOM 88 mg/dL (74-106)
[2018-06-09 11:07] LABS: ALK PHOS 52 U/L (45-117); BILIRUBIN,TOTAL 0.4 mg/dL (0.2-1.0); CREATININE 1.5 mg/dL (0.55-1.02); SGOT/AST 8 U/L (15-37); SGPT/ALT 10 U/L (12-78); TOT PROT 4.9 g/dl (6.4-8.2)
[2018-06-09 11:10] LABS: POTASSIUM 2.8 mmol/L (3.5-5.1)
[2018-06-09] MEDS ORDERED: POTASSIUM CHLORIDE TABS 20 MEQ TABLET.ER (FP) PO ONE (11:16)
[2018-06-09] MEDS ORDERED: POTASSIUM CHLORIDE 10 MEQ in SODIUM CHLORIDE 100 ML IVPB SCH (11:30)
--- NOTE | 2018-06-09 14:36 | PN ---
Teaching Attending Note Name of Resident: Andrea Stephen ATTENDING PHYSICIAN STATEMENT I saw and evaluated the patient. I reviewed the resident's note and discussed the case with the resident. I agree with the resident's findings and plan as documented. SUBJECTIVE:reports she feels better however that she still had at least 20 BM. when informed her the RN reports only 3 she states she unsure because she has a diaper on. denies CP, SOB, fever, chills, 3 BM since yesterday. semi-formed. OBJECTIVE: Last Vital Signs Temp Pulse Resp BP Pulse Ox 98.1 F 83 20 132/69 97 06/09/18 06:45 06/09/18 06:45 06/09/18 06:45 06/09/18 06:45 06/08/18 06:00 general NAD Abdomen soft NT slightly distended. hyperactive BS ASSESSMENT AND PLAN: 77yo F wtih PMH CKD, HTN, bipolar, frequent falls presenting with diarrhea for 6 weeks already treated with 2 courses of Flagyl and started on vanco po with no improvement 1. Persistent diarrhea- probable recurrent cdif. clinically improved. on vanco po and flagyl day 2. will liekly require prolonged course. tolerating diet. contact precautions. ID consulted. 2. Hypokalemia- due to diarrhea. replete 3. TARA- due to dehydration. IVF. monitor. renal u/s pending. avoid nephrotoxic agents 4. HTN- controlled. cont home meds 5. bipolar- no signs of manic episode. cont home medications 6. DVT ppx- Hep sq 7, d/c pili
[2018-06-09] MEDS: risperiDONE 0.5 MG TABLET (FP) PO SCH (21:31)
[2018-06-09] MEDS: LATANOPROST 0.005% OPHTH SOLN 2.5ML BOTTLE OU SCH (21:32)
[2018-06-09] MEDS: SERTRALINE HCL 50 MG, SERTRALINE HCL 25 MG PO SCH (23:00)
[2018-06-10] MEDS: MAG HYDROX/ALH/SMC/DPHA/LIDO 240 ML MOUTHWASH MM SCH ×3 (06:44→18:36)
[2018-06-10] MEDS: HEPARIN NA (PORCINE) 5,000 UNITS/ML 1ML VIAL SQ SCH ×3 (06:44→21:26)
[2018-06-10] MEDS: VANCOMYCIN 250 MG/5 ML ORAL SOLUTION PO SCH ×3 (06:45→18:36)
--- NOTE | 2018-06-10 08:03 | PN ---
Physical Exam: SUBJECTIVE: Patient seen and examined and bedside. pt still having loose BM and feeling bloated. says she needs help eating. denies Fever, chills, CP, SOB, N/V, urinary sxs OBJECTIVE: Vital Signs Period Temp Pulse Resp BP Sys/St Pulse Ox Last 24 Hr 97.4 F-98 F 71-82 16-20 118-145/62-78 95 GENERAL: Awake and alert, no acute distress HEAD: NCAT EYES: PERRL, no scleral icterus EARS, NOSE, THROAT: some difficulty hearing at baseline. MMM NECK: supple without lymphadenopathy LUNGS: crackles at bases or wheezes HEART: RRR normal S1 and S2 without m/r/g ABDOMEN: Soft, mild distension, nontender to palpation, +BS MUSCULOSKELETAL: No bony deformities or tenderness. UPPER EXTREMITIES: 2+ pulses, warm, well-perfused. No cyanosis. No clubbing. No peripheral edema. LOWER EXTREMITIES: 2+ pulses, warm, well-perfused. No calf tenderness. TEDs, legs elevated NEUROLOGICAL: Cranial nerves II-XII grossly intact. SKIN: Warm, dry, normal turgor, no rashes or lesions noted Laboratory Results - last 24 hr 06/09/18 07:15 Sodium 146 H Potassium 2.8 L* Chloride 117 H Carbon Dioxide 18 L Anion Gap 14 BUN 17 Creatinine 1.5 H Creat Clearance w eGFR 33.76 Random Glucose 88 Calcium 8.5 Total Bilirubin 0.4 AST 8 L ALT 10 L Alkaline Phosphatase 52 Total Protein 4.9 L Albumin 2.4 L Active Medications Generic Name Dose Route Start Last Admin Trade Name Freq PRN Reason Stop Dose Admin Amlodipine Besylate 10 mg 06/08/18 10:00 06/09/18 09:30 Norvasc - PO 10 mg DAILY ZAINAB Administration Cyanocobalamin 1,000 mcg 06/08/18 10:00 06/09/18 09:28 Vitamin B12 - PO 1,000 mcg DAILY ZAINAB Administration Divalproex Sodium 500 mg 06/09/18 10:00 06/09/18 09:30 Depakote *Er* - PO 500 mg DAILY ZAINAB Administration Heparin Sodium (Porcine) 5,000 unit 06/07/18 20:45 06/10/18 06:44 Heparin - SQ 5,000 unit TID ZAINAB Administration Potassium Chloride/Sodium Chloride 20 meq in 1,000 mls @ 100 mls/hr 06/08/18 03:15 06/09/18 10:49 Ns+20 Meq Kcl - IV 100 mls/hr ASDIR ZAINAB Administration Metronidazole 500 mg in 100 mls @ 100 mls/hr 06/08/18 06:00 06/10/18 02:23 Flagyl 500mg Premixed Ivpb - IVPB 100 mls/hr Q8H-IV ZAINAB Administration Lactobacillus Acidophilus 1 tab 06/07/18 20:45 06/09/18 09:28 Bacid - PO 1 tab DAILY ZAINAB Administration Latanoprost 1 drop 06/07/18 22:00 06/09/18 21:32 Xalatan 0.005% Eye Drops - OU 1 drop HS ZAINAB Administration Lidocaine/Aluminum/Magnesium/Simeth 5 ml 06/08/18 06:00 06/10/18 06:44 Magic Mouthwash *Sjr Formula* - MM 5 ml Q6HPO ZAINAB Administration Ranitidine HCl 75 mg 06/08/18 10:00 06/09/18 09:30 Zantac - PO 75 mg DAILY ZAINAB Administration Risperidone 0.75 mg 06/07/18 22:00 06/09/18 21:31 Risperdal - PO 0.75 mg HS ZAINAB Administration Sertraline HCl 50 mg/ 75 mg 06/07/18 22:00 06/09/18 23:00 Sertraline HCl 25 mg PO 75 mg HS ZAINAB Administration Timolol Maleate 1 drop 06/09/18 10:00 06/09/18 09:29 Timoptic Xe 0.5% OU 1 drop DAILY ZAINAB Administration Vancomycin HCl 250 mg 06/08/18 06:00 06/10/18 06:45 Vancomycin Oral Solution PO 250 mg Q6HPO ZAINAB Administration ASSESSMENT/PLAN: 77 yo female with 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 #Recurrent Diarrhea - possibly having refractory C-dif vs other bacterial or parasitic causes. consider malabsorption disorders. pt reports having loose BM. pt says continuous diarrhea w/ feeling bloated. per nurse, had 1-2 episodes of diarrhea. clinically improving and tolerating diet may require some help w/ feeding -ID consult -Stool ova and parasites -stool fecal fat -consider E. coli, Shigella, salmonella -Cdif toxin and Ag - negative -f/u PCR for C diff -Could also be inflammatory though less likely with recent hx C-dif -stool leukocytes -CBC with differential to check for eosinophilia -c/w Vanco 250 mg PO Q6, day 3 -flagyl 500 mg IV Q8 for broader coverage, day 3 -consider GI eval if doesn't improve -check stool for fecal fat. -colonscopy 4 years ago w/ polyps which pt reports as benign -Contact precautions #TARA on CKD- 2/2 dehydration. improving -Cr 1.9...1.5 -IV fluids -Renal US - b/l chronic kidney disease changes -Urine lytes -d/c -avoid nephrotoxic agents Hypokalemia - 2/2 diarrhea -K 2.8 -replete PO and IV -Repleting in fluids -ECG ordered -BMP in AM #bipolar- no signs of manic episode. -c/w home meds #HTN- controlled -c/w home meds #FEN -Fluids: d/c fluids -Electrolytes: as above, replete, BMP in AM -Nutrition: Regular diet DVT Prophylaxis -Heparin 5000 units SQ TID Disposition -medsurg Visit type - Emergency Visit Emergency Visit: Yes ED Registration Date: 06/08/18 Care time: The patient presented to the Emergency Department on the above date and was hospitalized for further evaluation of their emergent condition. - New Patient This patient is new to me today: Yes Date on this admission: 06/10/18 - Critical Care Critical Care patient: No
[2018-06-10] MEDS ORDERED: PT OWN MED DRAWER 7, Y5N ONE ×3 (08:21→11:03)
[2018-06-10 09:09] LABS: ALBUMIN 2.4 g/dl (3.4-5.0); ANION GAP 10 (8-16); BLOOD UREA NITROGEN 13 mg/dL (7-18); CALCIUM 8.4 mg/dL (8.5-10.1); CHLORIDE 123 mmol/L (98-107); CO2 21 mmol/L (21-32); CREATININE 1.5 mg/dL (0.55-1.02); GLUCOSE,RANDOM 91 mg/dL (74-106); SGPT/ALT 8 U/L (12-78); SODIUM 154 mmol/L (136-145)
[2018-06-10 09:15] LABS: ALK PHOS 54 U/L (45-117); BILIRUBIN,TOTAL 0.3 mg/dL (0.2-1.0); SGOT/AST 8 U/L (15-37); TOT PROT 4.8 g/dl (6.4-8.2)
[2018-06-10] MEDS: DIVALPROEX NA *ER* EXTEND REL 500 MG TABLET.SA (FP) PO SCH (10:28)
[2018-06-10] MEDS: amLODIPine BESYLATE 10 MG TABLET (FP) PO SCH (10:28)
[2018-06-10] MEDS: LACTOBACILLUS ACIDOPHILUS 1 TABLET PO SCH (10:28)
[2018-06-10] MEDS: RANITIDINE HCL 150 MG TABLET (FP) PO SCH (10:29)
[2018-06-10] MEDS: CYANOCOBALAMIN 1,000 MCG TABLET (FP) PO SCH (10:29)
[2018-06-10] MEDS: TIMOLOL MALEATE 0.5% GFS OPHTHALMIC SOLN 5 ML BOTTLE OU SCH (10:32)
--- NOTE | 2018-06-10 14:09 | PN ---
Teaching Attending Note Name of Resident: Andrea Stephen ATTENDING PHYSICIAN STATEMENT I saw and evaluated the patient. I reviewed the resident's note and discussed the case with the resident. I agree with the resident's findings and plan as documented. SUBJECTIVE:asymptomatic. denies Cp, SOB, fever, chills, N/V. has 5 loose watery BM since yesterday OBJECTIVE: Last Vital Signs Temp Pulse Resp BP Pulse Ox 98.0 F 73 20 158/89 98 06/10/18 10:00 06/10/18 10:00 06/10/18 10:00 06/10/18 10:06/10/18 09:00 general NAD Lungs Crackles on R base Abdomen soft NT slightly distended. hyperactive BS ASSESSMENT AND PLAN: 77yo F wtih PMH CKD, HTN, bipolar, frequent falls presenting with diarrhea for 6 weeks already treated with 2 courses of Flagyl and started on vanco po with no improvement 1. Persistent diarrhea- probable recurrent cdif. continuing to have frequent loose stool. on vanco po and flagyl day 3. on bacid. ID on board. awaiting cdiff PCR. will d/c IVF as developing some crackles. tolerating diet. contact precautions. ID consulted. 2. Hypokalemia- due to diarrhea. replete 3. TARA- due to dehydration. d/c IVF. monitor. renal u/s showing chronic renal disease, unknown baseline. avoid nephrotoxic agents 4. HTN- controlled. cont home meds 5. bipolar- no signs of manic episode. cont home medications 6. DVT ppx- Hep sq
[2018-06-10] MEDS: KCL 10 MEQ IVPB 10 MEQ/100 ML INFUS.BAG IVPB SCH ×2 (14:47→16:39)
[2018-06-10] MEDS: LATANOPROST 0.005% OPHTH SOLN 2.5ML BOTTLE OU SCH (21:24)
[2018-06-10] MEDS: risperiDONE 0.5 MG TABLET (FP) PO SCH (21:25)
[2018-06-10] MEDS: SERTRALINE HCL 50 MG, SERTRALINE HCL 25 MG PO SCH (21:27)
[2018-06-11] MEDS ORDERED: PT OWN MED DRAWER 7, Y5N ONE ×6 (00:04→21:10)
[2018-06-11] MEDS: MAG HYDROX/ALH/SMC/DPHA/LIDO 240 ML MOUTHWASH MM SCH ×5 (00:07→23:30)
[2018-06-11] MEDS: VANCOMYCIN 250 MG/5 ML ORAL SOLUTION PO SCH ×5 (00:07→23:30)
[2018-06-11] MEDS: HEPARIN NA (PORCINE) 5,000 UNITS/ML 1ML VIAL SQ SCH ×3 (06:00→21:34)
--- NOTE | 2018-06-11 08:19 | PN ---
Physical Exam: SUBJECTIVE: Patient seen and examined and bedside. pt still having loose BM and feeling bloated. says she needs help eating. denies Fever, chills, CP, SOB, N/V, urinary sxs OBJECTIVE: Vital Signs Period Temp Pulse Resp BP Sys/St Pulse Ox Last 24 Hr 97.2 F-98.0 F 68-82 18-20 140-158/79-89 98-98 GENERAL: Awake and alert, no acute distress HEAD: NCAT EYES: PERRL, no scleral icterus EARS, NOSE, THROAT: some difficulty hearing at baseline. MMM NECK: supple without lymphadenopathy LUNGS: crackles at bases. no wheezes HEART: RRR normal S1 and S2 without m/r/g ABDOMEN: Soft, mild distension, nontender to palpation, +BS MUSCULOSKELETAL: No bony deformities or tenderness. UPPER EXTREMITIES: 2+ pulses, warm, well-perfused. No cyanosis. No clubbing. No peripheral edema. LOWER EXTREMITIES: 2+ pulses, warm, well-perfused. No calf tenderness. TEDs, legs elevated NEUROLOGICAL: Cranial nerves II-XII grossly intact. SKIN: Warm, dry, normal turgor, no rashes or lesions noted Laboratory Results - last 24 hr 06/10/18 07:00 Sodium 154 H Potassium 3.0 L Chloride 123 H Carbon Dioxide 21 Anion Gap 10 BUN 13 Creatinine 1.5 H Creat Clearance w eGFR 33.76 Random Glucose 91 Calcium 8.4 L Total Bilirubin 0.3 AST 8 L ALT 8 L Alkaline Phosphatase 54 Total Protein 4.8 L Albumin 2.4 L Active Medications Generic Name Dose Route Start Last Admin Trade Name Freq PRN Reason Stop Dose Admin Amlodipine Besylate 10 mg 06/08/18 10:00 06/10/18 10:28 Norvasc - PO 10 mg DAILY ZAINAB Administration Cyanocobalamin 1,000 mcg 06/08/18 10:00 06/10/18 10:29 Vitamin B12 - PO 1,000 mcg DAILY ZAINAB Administration Divalproex Sodium 500 mg 06/09/18 10:00 06/10/18 10:28 Depakote *Er* - PO 500 mg DAILY ZAINAB Administration Heparin Sodium (Porcine) 5,000 unit 06/07/18 20:45 06/11/18 06:00 Heparin - SQ 5,000 unit TID ZAINAB Administration Metronidazole 500 mg in 100 mls @ 100 mls/hr 06/08/18 06:00 06/11/18 01:28 Flagyl 500mg Premixed Ivpb - IVPB 100 mls/hr Q8H-IV ZAINAB Administration Lactobacillus Acidophilus 1 tab 06/07/18 20:45 06/10/18 10:28 Bacid - PO 1 tab DAILY ZAINAB Administration Latanoprost 1 drop 06/07/18 22:00 06/10/18 21:24 Xalatan 0.005% Eye Drops - OU 1 drop HS ZAINAB Administration Lidocaine/Aluminum/Magnesium/Simeth 5 ml 06/08/18 06:00 06/11/18 06:00 Magic Mouthwash *Sjr Formula* - MM 5 ml Q6HPO ZAINAB Administration Ranitidine HCl 75 mg 06/08/18 10:00 06/10/18 10:29 Zantac - PO 75 mg DAILY ZAINAB Administration Risperidone 0.75 mg 06/07/18 22:00 06/10/18 21:25 Risperdal - PO 0.75 mg HS ZAINAB Administration Sertraline HCl 50 mg/ 75 mg 06/07/18 22:00 06/10/18 21:27 Sertraline HCl 25 mg PO 75 mg HS ZAINAB Administration Timolol Maleate 1 drop 06/09/18 10:00 06/10/18 10:32 Timoptic Xe 0.5% OU 1 drop DAILY ZAINAB Administration Vancomycin HCl 250 mg 06/08/18 06:00 06/11/18 06:00 Vancomycin Oral Solution PO 250 mg Q6HPO ZAINAB Administration ASSESSMENT/PLAN: 77 yo female with 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 #Recurrent Diarrhea - possibly having refractory C-dif vs other bacterial or parasitic causes. consider malabsorption disorders. pt reports having loose BM. pt says continuous diarrhea w/ feeling bloated. per nurse, had 5 episodes of diarrhea in 24hr. clinically improving and tolerating diet may require some help w/ feeding -ID consult -Stool ova and parasites -stool fecal fat -consider E. coli, Shigella, salmonella -Cdif toxin and Ag - negative -f/u PCR for C diff -Could also be inflammatory though less likely with recent hx C-dif -stool leukocytes -CBC with differential to check for eosinophilia -c/w Vanco 250 mg PO Q6, day 4 -d/c flagyl 500 mg IV Q8 for broader coverage, day 4, ID recs appreciated -consider GI eval if doesn't improve -check stool for fecal fat. -colonscopy 4 years ago w/ polyps which pt reports as benign -Contact precautions #TARA on CKD- 2/2 dehydration. improving -Cr 1.9...1.6 - d/c IV fluids -Renal US - b/l chronic kidney disease changes -Urine lytes -d/c -avoid nephrotoxic agents Hypokalemia - 2/2 diarrhea. Mg is low 1.6 -K 2.8 -replete Mg -replete PO and IV -ECG ordered -BMP in AM #bipolar- no signs of manic episode. -c/w home meds #HTN- controlled -c/w home meds #FEN -Fluids: d/c fluids -Electrolytes: as above, replete, BMP in AM -Nutrition: Regular diet DVT Prophylaxis -Heparin 5000 units SQ TID Disposition -medsurg Visit type - Emergency Visit Emergency Visit: Yes ED Registration Date: 06/08/18 Care time: The patient presented to the Emergency Department on the above date and was hospitalized for further evaluation of their emergent condition. - New Patient This patient is new to me today: Yes Date on this admission: 06/11/18 - Critical Care Critical Care patient: No
[2018-06-11 08:40] LABS: ALBUMIN 2.4 g/dl (3.4-5.0); ANION GAP 6 (8-16); BLOOD UREA NITROGEN 14 mg/dL (7-18); CALCIUM 8.5 mg/dL (8.5-10.1); CHLORIDE 118 mmol/L (98-107); CO2 25 mmol/L (21-32); CREATININE 1.6 mg/dL (0.55-1.02); GLUCOSE,RANDOM 110 mg/dL (74-106); SGOT/AST 9 U/L (15-37); SGPT/ALT 10 U/L (12-78); SODIUM 149 mmol/L (136-145)
--- NOTE | 2018-06-11 08:40 | PN ---
Teaching Attending Note Name of Resident: Andrea Stephen ATTENDING PHYSICIAN STATEMENT I saw and evaluated the patient. I reviewed the resident's note and discussed the case with the resident. I agree with the resident's findings and plan as documented. SUBJECTIVE: Comfortable with no acute distress. OBJECTIVE: Vital Signs Temperature 97.7 F 06/11/18 06:00 Pulse Rate 82 06/11/18 06:00 Respiratory Rate 18 06/11/18 06:00 Blood Pressure 140/84 06/11/18 06:00 O2 Sat by Pulse Oximetry (%) 98 06/10/18 21:00 CBCD WBC 6.2 K/mm3 (4.0-10.0) 06/08/18 07:00 RBC 3.77 M/mm3 (3.60-5.2) 06/08/18 07:00 Hgb 11.6 GM/dL (10.7-15.3) 06/08/18 07:00 Hct 34.2 % (32.4-45.2) 06/08/18 07:00 MCV 90.7 fl (80-96) 06/08/18 07:00 MCHC 33.8 g/dl (32.0-36.0) 06/08/18 07:00 RDW 14.6 % (11.6-15.6) 06/08/18 07:00 Plt Count 139 K/MM3 (134-434) 06/08/18 07:00 MPV 9.0 fl (7.5-11.1) 06/08/18 07:00 CMP Sodium 154 mmol/L (136-145) H 06/10/18 07:00 Potassium 3.0 mmol/L (3.5-5.1) L 06/10/18 07:00 Chloride 123 mmol/L (98-107) H 06/10/18 07:00 Carbon Dioxide 21 mmol/L (21-32) 06/10/18 07:00 Anion Gap 10 (8-16) 06/10/18 07:00 BUN 13 mg/dL (7-18) 06/10/18 07:00 Creatinine 1.5 mg/dL (0.55-1.02) H 06/10/18 07:00 Creat Clearance w eGFR 33.76 (>60) 06/10/18 07:00 Random Glucose 91 mg/dL (74-106) 06/10/18 07:00 Calcium 8.4 mg/dL (8.5-10.1) L 06/10/18 07:00 Total Bilirubin 0.3 mg/dL (0.2-1.0) 06/10/18 07:00 AST 8 U/L (15-37) L 06/10/18 07:00 ALT 8 U/L (12-78) L 06/10/18 07:00 Alkaline Phosphatase 54 U/L (45-117) 06/10/18 07:00 Total Protein 4.8 g/dl (6.4-8.2) L 06/10/18 07:00 Albumin 2.4 g/dl (3.4-5.0) L 06/10/18 07:00 Current Medications Generic Name Dose Route Start Last Admin Trade Name Freq PRN Reason Stop Dose Admin Amlodipine Besylate 10 mg 06/08/18 10:00 06/10/18 10:28 Norvasc - PO 10 mg DAILY ZAINAB Administration Cyanocobalamin 1,000 mcg 06/08/18 10:00 06/10/18 10:29 Vitamin B12 - PO 1,000 mcg DAILY ZAINAB Administration Divalproex Sodium 500 mg 06/09/18 10:00 06/10/18 10:28 Depakote *Er* - PO 500 mg DAILY ZAINAB Administration Heparin Sodium (Porcine) 5,000 unit 06/07/18 20:45 06/11/18 06:00 Heparin - SQ 5,000 unit TID ZAINAB Administration Metronidazole 500 mg in 100 mls @ 100 mls/hr 06/08/18 06:00 06/11/18 01:28 Flagyl 500mg Premixed Ivpb - IVPB 100 mls/hr Q8H-IV ZAINAB Administration Lactobacillus Acidophilus 1 tab 06/07/18 20:45 06/10/18 10:28 Bacid - PO 1 tab DAILY ZAINAB Administration Latanoprost 1 drop 06/07/18 22:00 06/10/18 21:24 Xalatan 0.005% Eye Drops - OU 1 drop HS ZAINAB Administration Lidocaine/Aluminum/Magnesium/Simeth 5 ml 06/08/18 06:00 06/11/18 06:00 Magic Mouthwash *Sjr Formula* - MM 5 ml Q6HPO ZAINAB Administration Ranitidine HCl 75 mg 06/08/18 10:00 06/10/18 10:29 Zantac - PO 75 mg DAILY ZAINAB Administration Risperidone 0.75 mg 06/07/18 22:00 06/10/18 21:25 Risperdal - PO 0.75 mg HS ZAINAB Administration Sertraline HCl 50 mg/ 75 mg 06/07/18 22:00 06/10/18 21:27 Sertraline HCl 25 mg PO 75 mg HS ZAINAB Administration Timolol Maleate 1 drop 06/09/18 10:00 06/10/18 10:32 Timoptic Xe 0.5% OU 1 drop DAILY ZAINAB Administration Vancomycin HCl 250 mg 06/08/18 06:00 06/11/18 06:00 Vancomycin Oral Solution PO 250 mg Q6HPO ZAINAB Administration Home Medications Medication Instructions Recorded Amlodipine Besylate [Norvasc -] 10 mg PO DAILY 06/08/18 Cholestyramine/Aspartame 4 gm PO BID 06/08/18 [Cholestyramine Light Packet] Cyanocobalamin (Vitamin B-12) 1,000 mcg PO DAILY 06/08/18 [Vitamin B-12] Divalproex Sodium [Depakote] 500 mg PO BID 06/08/18 Glucosa Mullins 2Kcl/Chondroitin Mullins 1 each PO BID 06/08/18 [Glucosamine & Chondroitin Cap] Lactobacillus Acidophilus [Bacid -] 1 each PO TID 06/08/18 Latanoprost 0.005% Eye Drops 1 drop OU HS 06/08/18 [Xalatan 0.005% Eye Drops -] Potassium Chloride [Klor-Con M20] 20 meq PO DAILY 06/08/18 Ranitidine HCl [Acid Currency Machine Operator] 75 mg PO BID 06/08/18 Risperidone 0.75 mg PO HS 06/08/18 Sertraline HCl [Zoloft -] 75 mg PO HS 06/08/18 Timolol 0.5% [Timoptic 0.5%] 1 drop OU BID 06/08/18 Vancomycin HCl 250 mg PO Q6H 06/08/18 Microbiology 06/09/18 13:20 Stool Clostridium difficile (PCR) - Preliminary 06/08/18 09:00 Stool Gram Stain - Final 06/08/18 09:00 Stool Clostridium difficile Antigen (YU) - Final 06/08/18 09:00 Stool Clostridium difficile Toxin Assay - Final Renal US: IMPRESSION: Bilateral echogenic kidneys compatible with chronic medical renal disease. Mild right renal hydronephrosis. Small right renal simple cyst and a few small left renal simple cyst as described above. Reported By: Hussain Turner MD 06/08/18 [id number] ASSESSMENT AND PLAN: Patient is a 77yo Female wt PMH CKD, HTN, bipolar, frequent falls presenting with diarrhea for 6 weeks already treated with 2 courses of Flagyl and started on vanco po. # Acute Persistent diarrhea- continue on vanco po and IV flagyl day , on bacid continue. ID on board. cdiff PCR pending . contact precautions. ID consulted. # Hypokalemia- due to diarrhea.will replete # Acute hypernatremia: IVF was dc'd # TARA- due to dehydration. renal u/s showing chronic renal disease . avoid nephrotoxic agents # HTN- controlled. cont home meds # bipolar- no signs of manic episode. cont home medications DVT ppx- Hep sq
[2018-06-11 08:42] LABS: ALK PHOS 56 U/L (45-117); BILIRUBIN,TOTAL 0.2 mg/dL (0.2-1.0)
[2018-06-11 09:28] LABS: POTASSIUM 2.6 mmol/L (3.5-5.1)
[2018-06-11] MEDS ORDERED: POTASSIUM CHLORIDE TABS 20 MEQ TABLET.ER (FP) PO ONE ×2 (10:19→10:20)
[2018-06-11] MEDS: RANITIDINE HCL 150 MG TABLET (FP) PO SCH (10:44)
[2018-06-11] MEDS: amLODIPine BESYLATE 10 MG TABLET (FP) PO SCH (10:44)
[2018-06-11] MEDS: DIVALPROEX NA *ER* EXTEND REL 500 MG TABLET.SA (FP) PO SCH (10:44)
[2018-06-11] MEDS: CYANOCOBALAMIN 1,000 MCG TABLET (FP) PO SCH (10:45)
[2018-06-11] MEDS: LACTOBACILLUS ACIDOPHILUS 1 TABLET PO SCH (10:45)
[2018-06-11] MEDS: KCL 10 MEQ IVPB 10 MEQ/100 ML INFUS.BAG IVPB SCH ×3 (10:46→16:09)
[2018-06-11] MEDS: TIMOLOL MALEATE 0.5% GFS OPHTHALMIC SOLN 5 ML BOTTLE OU SCH (10:51)
[2018-06-11 11:56] LABS: BASO % 0.1 % (0-2.0); EOS % 0.3 % (0-4.5); HEMATOCRIT 36.6 % (32.4-45.2); HEMOGLOBIN 12.3 GM/dL (10.7-15.3); LYMPH % 9.2 % (8-40); MCH 30.6 pg (25.7-33.7); MCHC 33.4 g/dl (32.0-36.0); MEAN CELL VOLUME 91.5 fl (80-96); MEAN PLT VOLUME 9.3 fl (7.5-11.1); MONO % 10.7 % (3.8-10.2); NEUT % 79.7 % (42.8-82.8); PLATELET COUNT 165 K/MM3 (134-434); RDW 14.9 % (11.6-15.6); WHITE BLOOD COUNT 6.5 K/mm3 (4.0-10.0)
[2018-06-11 12:10] LABS: MAGNESIUM 1.6 mg/dL (1.8-2.4)
--- NOTE | 2018-06-11 15:12 | PN ---
Progress Note, Physician History of Present Illness: More awake and alert Conversant C/O abdominal bloating but no pain No N/V Staff reports soft stool No profuse diarrhea Afebrile Normal WBC - Current Medication List Current Medications: Active Medications Amlodipine Besylate (Norvasc -) 10 mg PO DAILY [facility] Last Admin: 06/11/18 10:44 Dose: 10 mg Cyanocobalamin (Vitamin B12 -) 1,000 mcg PO DAILY [facility] Last Admin: 06/11/18 10:45 Dose: 1,000 mcg Divalproex Sodium (Depakote *Er* -) 500 mg PO DAILY [facility] Last Admin: 06/11/18 10:44 Dose: 500 mg Heparin Sodium (Porcine) (Heparin -) 5,000 unit SQ TID [facility] Last Admin: 06/11/18 14:16 Dose: 5,000 unit Metronidazole (Flagyl 500mg Premixed Ivpb -) 500 mg in 100 mls @ 100 mls/hr IVPB Q8H-IV [facility] Last Admin: 06/11/18 12:28 Dose: 100 mls/hr Lactobacillus Acidophilus (Bacid -) 1 tab PO DAILY [facility] Last Admin: 06/11/18 10:45 Dose: 1 tab Latanoprost (Xalatan 0.005% Eye Drops -) 1 drop OU [facility] Last Admin: 06/10/18 21:24 Dose: 1 drop Lidocaine/Aluminum/Magnesium/Simeth (Magic Mouthwash *Sjr Formula* -) 5 ml MM Q6HPO [facility] Last Admin: 06/11/18 12:28 Dose: 5 ml Ranitidine HCl (Zantac -) 75 mg PO DAILY [facility] Last Admin: 06/11/18 10:44 Dose: 75 mg Risperidone (Risperdal -) 0.75 mg PO [facility] Last Admin: 06/10/18 21:25 Dose: 0.75 mg Sertraline HCl 50 mg/ (Sertraline HCl 25 mg) 75 mg PO [facility] Last Admin: 06/10/18 21:27 Dose: 75 mg Timolol Maleate (Timoptic Xe 0.5%) 1 drop OU DAILY [facility] Last Admin: 06/11/18 10:51 Dose: 1 drop Vancomycin HCl (Vancomycin Oral Solution) 250 mg PO Q6HPO [facility] Last Admin: 06/11/18 12:28 Dose: 250 mg - Objective Vital Signs: Vital Signs Temperature 97.5 F L 06/11/18 10:00 Pulse Rate 68 06/11/18 10:00 Respiratory Rate 20 06/11/18 10:00 Blood Pressure 135/74 06/11/18 10:00 O2 Sat by Pulse Oximetry (%) 98 06/11/18 09:00 Constitutional: Yes: No Distress Cardiovascular: Yes: Regular Rate and Rhythm, S1, S2 Respiratory: Yes: CTA Bilaterally Gastrointestinal: Yes: Normal Bowel Sounds, Soft, Other (slightly distended). No: Tenderness Labs: CBC, BMP 06/11/18 07:30 06/11/18 07:30 Assessment/Plan ? recurrent C difficile C diff ag/toxin (-) PCR pending Dehydration Hyponatremia Continue vancomycin Can D/C IV flagyl Contact precautions
[2018-06-11] MEDS ORDERED: MAGNESIUM OXIDE 400 MG TABLET (FP) PO ONE (16:15)
[2018-06-11] MEDS: risperiDONE 0.5 MG TABLET (FP) PO SCH (21:32)
[2018-06-11] MEDS: LATANOPROST 0.005% OPHTH SOLN 2.5ML BOTTLE OU SCH (21:32)
[2018-06-11] MEDS: SERTRALINE HCL 50 MG, SERTRALINE HCL 25 MG PO SCH (21:32)
[2018-06-12] MEDS: VANCOMYCIN 250 MG/5 ML ORAL SOLUTION PO SCH ×3 (06:12→17:55)
[2018-06-12] MEDS: MAG HYDROX/ALH/SMC/DPHA/LIDO 240 ML MOUTHWASH MM SCH ×2 (06:12→13:18)
[2018-06-12] MEDS: HEPARIN NA (PORCINE) 5,000 UNITS/ML 1ML VIAL SQ SCH ×3 (06:12→21:35)
[2018-06-12 08:04] LABS: ALBUMIN 2.6 g/dl (3.4-5.0); CALCIUM 8.8 mg/dL (8.5-10.1); CHLORIDE 117 mmol/L (98-107); POTASSIUM 3.2 mmol/L (3.5-5.1); SODIUM 149 mmol/L (136-145)
[2018-06-12 08:09] LABS: ALK PHOS 60 U/L (45-117); ANION GAP 5 (8-16); BILIRUBIN,TOTAL 0.2 mg/dL (0.2-1.0); BLOOD UREA NITROGEN 13 mg/dL (7-18); CO2 27 mmol/L (21-32); CREATININE 1.4 mg/dL (0.55-1.02); GLUCOSE,RANDOM 114 mg/dL (74-106); MAGNESIUM 1.8 mg/dL (1.8-2.4); PHOSPHOROUS 1.9 mg/dL (2.5-4.9); SGOT/AST 9 U/L (15-37); SGPT/ALT 12 U/L (12-78); TOT PROT 5.3 g/dl (6.4-8.2)
[2018-06-12] MEDS ORDERED: PT OWN MED DRAWER 7, Y5N ONE (10:05)
[2018-06-12] MEDS: RANITIDINE HCL 150 MG TABLET (FP) PO SCH (10:14)
[2018-06-12] MEDS: DIVALPROEX NA *ER* EXTEND REL 500 MG TABLET.SA (FP) PO SCH (10:14)
[2018-06-12] MEDS: LACTOBACILLUS ACIDOPHILUS 1 TABLET PO SCH (10:14)
[2018-06-12] MEDS: TIMOLOL MALEATE 0.5% GFS OPHTHALMIC SOLN 5 ML BOTTLE OU SCH (10:14)
[2018-06-12] MEDS: amLODIPine BESYLATE 10 MG TABLET (FP) PO SCH (10:14)
[2018-06-12] MEDS: CYANOCOBALAMIN 1,000 MCG TABLET (FP) PO SCH (10:15)
--- NOTE | 2018-06-12 11:17 | PN ---
Physical Exam: SUBJECTIVE: Patient seen and examined Patient is better. Staff reports soft stool No profuse diarrhea OBJECTIVE: Vital Signs Temperature 97.9 F 06/12/18 06:00 Pulse Rate 81 06/12/18 06:00 Respiratory Rate 18 06/12/18 06:00 Blood Pressure 154/76 06/12/18 06:00 O2 Sat by Pulse Oximetry (%) 98 06/11/18 21:00 GENERAL: The patient is awake, alert, in no acute distress. HEAD: Normal with no signs of trauma. EYES: PERRL, extraocular movements intact, sclera anicteric, conjunctiva clear. ENT: Ears normal, oropharynx clear without exudates, moist mucous membranes. NECK: Trachea midline, full range of motion, supple. LUNGS: decreased Breath sounds at basis otherwise clear to auscultation bilaterally, no wheezes, no crackles, no accessory muscle use. HEART: Regular rate and rhythm, S1, S2 positive, FRANCINE 2/6 , murmur, rub or gallop. ABDOMEN: Soft, nontender, nondistended, normoactive bowel sounds, no guarding, no rebound, no hepatosplenomegaly, no masses. EXTREMITIES: 2+ pulses, warm, well-perfused, no edema. NEUROLOGICAL: Cranial nerves II through XII grossly intact. Normal speech, gait not observed. PSYCH: Normal mood, normal affect. SKIN: Warm, dry, normal turgor, no rashes or lesions noted CBCD WBC 6.5 K/mm3 (4.0-10.0) 06/11/18 07:30 RBC 4.00 M/mm3 (3.60-5.2) 06/11/18 07:30 Hgb 12.3 GM/dL (10.7-15.3) 06/11/18 07:30 Hct 36.6 % (32.4-45.2) 06/11/18 07:30 MCV 91.5 fl (80-96) 06/11/18 07:30 MCHC 33.4 g/dl (32.0-36.0) 06/11/18 07:30 RDW 14.9 % (11.6-15.6) 06/11/18 07:30 Plt Count 165 K/MM3 (134-434) 06/11/18 07:30 MPV 9.3 fl (7.5-11.1) 06/11/18 07:30 CMP Sodium 149 mmol/L (136-145) H 06/12/18 06:30 Potassium 3.2 mmol/L (3.5-5.1) L 06/12/18 06:30 Chloride 117 mmol/L (98-107) H 06/12/18 06:30 Carbon Dioxide 27 mmol/L (21-32) 06/12/18 06:30 Anion Gap 5 (8-16) L 06/12/18 06:30 BUN 13 mg/dL (7-18) 06/12/18 06:30 Creatinine 1.4 mg/dL (0.55-1.02) H 06/12/18 06:30 Creat Clearance w eGFR 36.56 (>60) 06/12/18 06:30 Random Glucose 114 mg/dL (74-106) H 06/12/18 06:30 Calcium 8.8 mg/dL (8.5-10.1) 06/12/18 06:30 Total Bilirubin 0.2 mg/dL (0.2-1.0) 06/12/18 06:30 AST 9 U/L (15-37) L 06/12/18 06:30 ALT 12 U/L (12-78) 06/12/18 06:30 Alkaline Phosphatase 60 U/L (45-117) 06/12/18 06:30 Total Protein 5.3 g/dl (6.4-8.2) L 06/12/18 06:30 Albumin 2.6 g/dl (3.4-5.0) L 06/12/18 06:30 Current Medications Generic Name Dose Route Start Last Admin Trade Name Marcellus PRN Reason Stop Dose Admin Amlodipine Besylate 10 mg 06/08/18 10:00 06/12/18 10:14 Norvasc - PO 10 mg DAILY ZAINAB Administration Cyanocobalamin 1,000 mcg 06/08/18 10:00 06/12/18 10:15 Vitamin B12 - PO 1,000 mcg DAILY ZAINAB Administration Divalproex Sodium 500 mg 06/09/18 10:00 06/12/18 10:14 Depakote *Er* - PO 500 mg DAILY ZAINAB Administration Heparin Sodium (Porcine) 5,000 unit 06/07/18 20:45 06/12/18 06:12 Heparin - SQ 5,000 unit TID ZAINAB Administration Lactobacillus Acidophilus 1 tab 06/07/18 20:45 06/12/18 10:14 Bacid - PO 1 tab DAILY ZAINAB Administration Latanoprost 1 drop 06/07/18 22:00 06/11/18 21:32 Xalatan 0.005% Eye Drops - OU 1 drop HS ZAINAB Administration Lidocaine/Aluminum/Magnesium/Simeth 5 ml 06/08/18 06:00 06/12/18 06:12 Magic Mouthwash *Sjr Formula* - MM 5 ml Q6HPO ZAINAB Administration Ranitidine HCl 75 mg 06/08/18 10:00 06/12/18 10:14 Zantac - PO 75 mg DAILY ZAINAB Administration Risperidone 0.75 mg 06/07/18 22:00 06/11/18 21:32 Risperdal - PO 0.75 mg HS ZAINAB Administration Sertraline HCl 50 mg/ 75 mg 06/07/18 22:00 06/11/18 21:32 Sertraline HCl 25 mg PO 75 mg HS ZAINAB Administration Timolol Maleate 1 drop 06/09/18 10:00 06/12/18 10:14 Timoptic Xe 0.5% OU 1 drop DAILY ZAINAB Administration Vancomycin HCl 250 mg 06/08/18 06:00 06/12/18 06:12 Vancomycin Oral Solution PO 250 mg Q6HPO ZAINAB Administration Home Medications Medication Instructions Recorded Amlodipine Besylate [Norvasc -] 10 mg PO DAILY 06/08/18 Cholestyramine/Aspartame 4 gm PO BID 06/08/18 [Cholestyramine Light Packet] Cyanocobalamin (Vitamin B-12) 1,000 mcg PO DAILY 06/08/18 [Vitamin B-12] Divalproex Sodium [Depakote] 500 mg PO BID 06/08/18 Glucosa Mullins 2Kcl/Chondroitin Mullins 1 each PO BID 06/08/18 [Glucosamine & Chondroitin Cap] Lactobacillus Acidophilus [Bacid -] 1 each PO TID 06/08/18 Latanoprost 0.005% Eye Drops 1 drop OU HS 06/08/18 [Xalatan 0.005% Eye Drops -] Potassium Chloride [Klor-Con M20] 20 meq PO DAILY 06/08/18 Ranitidine HCl [Acid Water/Wastewater Project Engineer] 75 mg PO BID 06/08/18 Risperidone 0.75 mg PO HS 06/08/18 Sertraline HCl [Zoloft -] 75 mg PO HS 06/08/18 Timolol 0.5% [Timoptic 0.5%] 1 drop OU BID 06/08/18 Vancomycin HCl 250 mg PO Q6H 06/08/18 06/09/18 13:20 Stool Clostridium difficile (PCR) - Preliminary 06/08/18 09:00 Stool Gram Stain - Final 06/08/18 09:00 Stool Clostridium difficile Antigen (YU) - Final 06/08/18 09:00 Stool Clostridium difficile Toxin Assay - Final Renal US: IMPRESSION: Bilateral echogenic kidneys compatible with chronic medical renal disease. Mild right renal hydronephrosis. Small right renal simple cyst and a few small left renal simple cyst as described above. Reported By: Hussain Turner MD 06/08/18 [id number] ASSESSMENT AND PLAN: Patient is a 77yo Female [facility] CKD, HTN, bipolar, frequent falls presenting with diarrhea for 6 weeks already treated with 2 courses of Flagyl and started on vanco po. # Acute Persistent diarrhea improving as per staff more formed stool, continue on vanco po . s/p IV flagyl day. on bacid continue. cdiff PCR pending . contact precautions. ID consulted appreciated. # Hypokalemia- improving due to diarrhea. # Acute hypernatremia improving : IVF was dc'd # TARA- due to dehydration. renal u/s showing chronic renal disease . avoid nephrotoxic agents # HTN- controlled. cont home meds # bipolar- no signs of manic episode. cont home medications DVT ppx- Hep sq Visit type - Emergency Visit Emergency Visit: Yes ED Registration Date: 06/08/18 Care time: The patient presented to the Emergency Department on the above date and was hospitalized for further evaluation of their emergent condition. - New Patient This patient is new to me today: No - Critical Care Critical Care patient: No - Discharge Referral Referred to [facility] No
[2018-06-12] MEDS ORDERED: POTASSIUM CHLORIDE TABS 20 MEQ TABLET.ER (FP) PO ONE (11:26)
[2018-06-12] MEDS: POTASSIUM CHLORIDE TABS 20 MEQ TABLET.ER (FP) PO SCH (17:55)
[2018-06-12] MEDS: SERTRALINE HCL 50 MG, SERTRALINE HCL 25 MG PO SCH (21:34)
[2018-06-12] MEDS: risperiDONE 0.5 MG TABLET (FP) PO SCH (21:34)
[2018-06-12] MEDS: LATANOPROST 0.005% OPHTH SOLN 2.5ML BOTTLE OU SCH (22:52)
[2018-06-13] MEDS: VANCOMYCIN 250 MG/5 ML ORAL SOLUTION PO SCH ×4 (00:07→18:01)
[2018-06-13] MEDS: HEPARIN NA (PORCINE) 5,000 UNITS/ML 1ML VIAL SQ SCH ×3 (05:14→22:09)
[2018-06-13 06:54] LABS: BASO % 0.2 % (0-2.0); EOS % 0.3 % (0-4.5); HEMATOCRIT 33.5 % (32.4-45.2); HEMOGLOBIN 11.6 GM/dL (10.7-15.3); LYMPH % 9.1 % (8-40); MCH 31.1 pg (25.7-33.7); MCHC 34.5 g/dl (32.0-36.0); MEAN CELL VOLUME 90.2 fl (80-96); MEAN PLT VOLUME 8.2 fl (7.5-11.1); MONO % 13.6 % (3.8-10.2); NEUT % 76.8 % (42.8-82.8); PLATELET COUNT 151 K/MM3 (134-434); RBC 3.72 M/mm3 (3.60-5.2); RDW 14.8 % (11.6-15.6)
[2018-06-13 07:45] LABS: CHLORIDE 119 mmol/L (98-107); POTASSIUM 3.6 mmol/L (3.5-5.1); SODIUM 148 mmol/L (136-145)
[2018-06-13 07:59] LABS: ALBUMIN 2.4 g/dl (3.4-5.0); ALK PHOS 52 U/L (45-117); ANION GAP 6 (8-16); BILIRUBIN,TOTAL 0.3 mg/dL (0.2-1.0); BLOOD UREA NITROGEN 14 mg/dL (7-18); CALCIUM 9.3 mg/dL (8.5-10.1); CO2 23 mmol/L (21-32); CREATININE 1.3 mg/dL (0.55-1.02); GLUCOSE,RANDOM 104 mg/dL (74-106); MAGNESIUM 1.9 mg/dL (1.8-2.4); PHOSPHOROUS 1.5 mg/dL (2.5-4.9); SGOT/AST 8 U/L (15-37); SGPT/ALT 11 U/L (12-78); TOT PROT 4.8 g/dl (6.4-8.2)
[2018-06-13] MEDS ORDERED: POTASSIUM PHOSPHATE 30 MM in DEXTROSE 5%-WATER - 500 ML IVPB ONE (09:00)
[2018-06-13] MEDS ORDERED: PT OWN MED DRAWER 7, Y5N ONE ×4 (09:24→22:04)
[2018-06-13] MEDS: RANITIDINE HCL 150 MG TABLET (FP) PO SCH (09:35)
[2018-06-13] MEDS: CYANOCOBALAMIN 1,000 MCG TABLET (FP) PO SCH (09:35)
[2018-06-13] MEDS: amLODIPine BESYLATE 10 MG TABLET (FP) PO SCH (09:36)
[2018-06-13] MEDS: POTASSIUM CHLORIDE TABS 20 MEQ TABLET.ER (FP) PO SCH (09:36)
[2018-06-13] MEDS: DIVALPROEX NA *ER* EXTEND REL 500 MG TABLET.SA (FP) PO SCH (09:36)
[2018-06-13] MEDS: LACTOBACILLUS ACIDOPHILUS 1 TABLET PO SCH (09:36)
--- NOTE | 2018-06-13 12:20 | PN ---
<Andrea Stephen - Last Filed: 06/13/18 17:32> Physical Exam: SUBJECTIVE: Patient seen and examined and bedside. pt still having loose BM and feeling bloated but improving. says she needs help eating. denies Fever, chills, CP, SOB, N/V, urinary sxs OBJECTIVE: Vital Signs Period Temp Pulse Resp BP Sys/St Pulse Ox Last 24 Hr 97.7 F-97.9 F 72-76 20-22 120-127/64-79 95 GENERAL: Awake and alert, no acute distress HEAD: NCAT EYES: PERRL, no scleral icterus EARS, NOSE, THROAT: some difficulty hearing at baseline. MMM NECK: supple without lymphadenopathy LUNGS: crackles at bases. no wheezes HEART: RRR normal S1 and S2 without m/r/g ABDOMEN: Soft, mild distension, nontender to palpation, +BS MUSCULOSKELETAL: No bony deformities or tenderness. UPPER EXTREMITIES: 2+ pulses, warm, well-perfused. No cyanosis. No clubbing. No peripheral edema. LOWER EXTREMITIES: 2+ pulses, warm, well-perfused. No calf tenderness. TEDs, legs elevated NEUROLOGICAL: Cranial nerves II-XII grossly intact. SKIN: Warm, dry, normal turgor, no rashes or lesions noted Laboratory Results - last 24 hr 06/13/18 06/13/18 06:30 06:30 WBC 9.0 RBC 3.72 Hgb 11.6 Hct 33.5 MCV 90.2 MCH 31.1 MCHC 34.5 RDW 14.8 Plt Count 151 MPV 8.2 D Absolute Neuts (auto) 6.9 Neutrophils % 76.8 Lymphocytes % 9.1 Monocytes % 13.6 H Eosinophils % 0.3 Basophils % 0.2 Nucleated RBC % 0 Sodium 148 H Potassium 3.6 Chloride 119 H Carbon Dioxide 23 Anion Gap 6 L BUN 14 Creatinine 1.3 H Creat Clearance w eGFR 39.82 Random Glucose 104 Calcium 9.3 Phosphorus 1.5 L Magnesium 1.9 Total Bilirubin 0.3 AST 8 L ALT 11 L Alkaline Phosphatase 52 Total Protein 4.8 L Albumin 2.4 L Active Medications Generic Name Dose Route Start Last Admin Trade Name Freq PRN Reason Stop Dose Admin Amlodipine Besylate 10 mg 06/08/18 10:00 06/13/18 09:36 Norvasc - PO 10 mg DAILY ZAINAB Administration Cyanocobalamin 1,000 mcg 06/08/18 10:00 06/13/18 09:35 Vitamin B12 - PO 1,000 mcg DAILY ZAINAB Administration Divalproex Sodium 500 mg 06/09/18 10:00 06/13/18 09:36 Depakote *Er* - PO 500 mg DAILY ZAINAB Administration Heparin Sodium (Porcine) 5,000 unit 06/07/18 20:45 06/13/18 05:14 Heparin - SQ 5,000 unit TID ZAINAB Administration Potassium Phosphate 30 mm/ 510 mls @ 62.5 mls/hr 06/13/18 09:00 06/13/18 09: 35 Dextrose IVPB 06/13/18 17:09 62.5 mls/hr ONCE ONE Administration Lactobacillus Acidophilus 1 tab 06/07/18 20:45 06/13/18 09:36 Bacid - PO 1 tab DAILY ZAINAB Administration Latanoprost 1 drop 06/07/18 22:00 06/12/18 22:52 Xalatan 0.005% Eye Drops - OU 1 drop HS ZAINAB Administration Potassium Chloride 20 meq 06/12/18 18:00 06/13/18 09:36 K-Dur - PO 20 meq DAILY ZAINAB Administration Ranitidine HCl 75 mg 06/08/18 10:00 06/13/18 09:35 Zantac - PO 75 mg DAILY ZAINAB Administration Risperidone 0.75 mg 06/07/18 22:00 06/12/18 21:34 Risperdal - PO 0.75 mg HS ZAINAB Administration Sertraline HCl 50 mg/ 75 mg 06/07/18 22:00 06/12/18 21:34 Sertraline HCl 25 mg PO 75 mg HS ZAINAB Administration Timolol Maleate 1 drop 06/09/18 10:00 06/12/18 10:14 Timoptic Xe 0.5% OU 1 drop DAILY ZAINAB Administration Vancomycin HCl 250 mg 06/08/18 06:00 06/13/18 05:13 Vancomycin Oral Solution PO 250 mg Q6HPO ZAINAB Administration ASSESSMENT/PLAN: 77 yo female with 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 #Recurrent Diarrhea - possibly having refractory C-dif vs other bacterial or parasitic causes. consider malabsorption disorders. pt reports having loose BM w / feeling bloated. clinically improving and tolerating diet may require some help w/ feeding -ID consult -Stool ova and parasites -stool fecal fat -consider E. coli, Shigella, salmonella -Cdif toxin and Ag - negative - PCR for C diff neg -Could also be inflammatory though less likely with recent hx C-dif -stool leukocytes -CBC with differential - no eosinophilia -c/w Vanco 250 mg PO Q6, day 6 -d/c flagyl 500 mg IV Q8 for broader coverage, received total 4 days 06/11/18, ID recs appreciated -consider GI eval if doesn't improve -colonscopy 4 years ago w/ polyps which pt reports as benign -Contact precautions #TARA on CKD- 2/2 dehydration. improving -Cr 1.9...1.6...1.3 - d/c IV fluids -Renal US - b/l chronic kidney disease changes -Urine lytes -d/c -avoid nephrotoxic agents Hypokalemia - 2/2 diarrhea. improving -K 2.8...3.6 -Mg repleted -replete PO and IV -ECG ordered -BMP in AM #bipolar- no signs of manic episode. -c/w home meds #HTN- controlled -c/w home meds #FEN -Fluids: d/c fluids -Electrolytes: as above, replete. phosph 1.5, giving IV K-phosph 30mmol in 500cc D5W -Nutrition: Regular diet DVT Prophylaxis -Heparin 5000 units SQ TID Disposition -medsurg Visit type - Emergency Visit Emergency Visit: Yes ED Registration Date: 06/08/18 Care time: The patient presented to the Emergency Department on the above date and was hospitalized for further evaluation of their emergent condition. - New Patient This patient is new to me today: Yes Date on this admission: 06/13/18 - Critical Care Critical Care patient: No <Ghulam Robertson - Last Filed: 06/13/18 19:12> Physical Exam: AGREE with the resident's note. No acute distress. Vital Signs Temperature 98.2 F 06/13/18 15:11 Pulse Rate 66 06/13/18 15:11 Respiratory Rate 20 06/13/18 15:11 Blood Pressure 104/69 06/13/18 15:11 O2 Sat by Pulse Oximetry (%) 95 06/13/18 09:00 CBCD WBC 9.0 K/mm3 (4.0-10.0) 06/13/18 06:30 RBC 3.72 M/mm3 (3.60-5.2) 06/13/18 06:30 Hgb 11.6 GM/dL (10.7-15.3) 06/13/18 06:30 Hct 33.5 % (32.4-45.2) 06/13/18 06:30 MCV 90.2 fl (80-96) 06/13/18 06:30 MCHC 34.5 g/dl (32.0-36.0) 06/13/18 06:30 RDW 14.8 % (11.6-15.6) 06/13/18 06:30 Plt Count 151 K/MM3 (134-434) 06/13/18 06:30 MPV 8.2 fl (7.5-11.1) D 06/13/18 06:30 CMP Sodium 148 mmol/L (136-145) H 06/13/18 06:30 Potassium 3.6 mmol/L (3.5-5.1) 06/13/18 06:30 Chloride 119 mmol/L (98-107) H 06/13/18 06:30 Carbon Dioxide 23 mmol/L (21-32) 06/13/18 06:30 Anion Gap 6 (8-16) L 06/13/18 06:30 BUN 14 mg/dL (7-18) 06/13/18 06:30 Creatinine 1.3 mg/dL (0.55-1.02) H 06/13/18 06:30 Creat Clearance w eGFR 39.82 (>60) 06/13/18 06:30 Random Glucose 104 mg/dL (74-106) 06/13/18 06:30 Calcium 9.3 mg/dL (8.5-10.1) 06/13/18 06:30 Total Bilirubin 0.3 mg/dL (0.2-1.0) 06/13/18 06:30 AST 8 U/L (15-37) L 06/13/18 06:30 ALT 11 U/L (12-78) L 06/13/18 06:30 Alkaline Phosphatase 52 U/L (45-117) 06/13/18 06:30 Total Protein 4.8 g/dl (6.4-8.2) L 06/13/18 06:30 Albumin 2.4 g/dl (3.4-5.0) L 06/13/18 06:30 Current Medications Generic Name Dose Route Start Last Admin Trade Name Marcellus PRN Reason Stop Dose Admin Amlodipine Besylate 10 mg 06/08/18 10:00 06/13/18 09:36 Norvasc - PO 10 mg DAILY ZAINAB Administration Cyanocobalamin 1,000 mcg 06/08/18 10:00 06/13/18 09:35 Vitamin B12 - PO 1,000 mcg DAILY ZAINAB Administration Divalproex Sodium 500 mg 06/09/18 10:00 06/13/18 09:36 Depakote *Er* - PO 500 mg DAILY ZAINAB Administration Heparin Sodium (Porcine) 5,000 unit 06/07/18 20:45 06/13/18 13:21 Heparin - SQ 5,000 unit TID ZAINAB Administration Lactobacillus Acidophilus 1 tab 06/07/18 20:45 06/13/18 09:36 Bacid - PO 1 tab DAILY ZAINAB Administration Latanoprost 1 drop 06/07/18 22:00 06/12/18 22:52 Xalatan 0.005% Eye Drops - OU 1 drop HS ZAINAB Administration Potassium Chloride 20 meq 06/12/18 18:00 06/13/18 09:36 K-Dur - PO 20 meq DAILY ZAINAB Administration Ranitidine HCl 75 mg 06/08/18 10:00 06/13/18 09:35 Zantac - PO 75 mg DAILY ZAINAB Administration Risperidone 0.75 mg 06/07/18 22:00 06/12/18 21:34 Risperdal - PO 0.75 mg HS ZAINAB Administration Sertraline HCl 50 mg/ 75 mg 06/07/18 22:00 06/12/18 21:34 Sertraline HCl 25 mg PO 75 mg HS ZAINAB Administration Timolol Maleate 1 drop 06/09/18 10:00 06/13/18 12:37 Timoptic Xe 0.5% OU 1 drop DAILY ZAINAB Administration Vancomycin HCl 250 mg 06/08/18 06:00 06/13/18 18:01 Vancomycin Oral Solution PO 250 mg Q6HPO ZAINAB Administration Home Medications Medication Instructions Recorded Amlodipine Besylate [Norvasc -] 10 mg PO DAILY 06/08/18 Cholestyramine/Aspartame 4 gm PO BID 06/08/18 [Cholestyramine Light Packet] Cyanocobalamin (Vitamin B-12) 1,000 mcg PO DAILY 06/08/18 [Vitamin B-12] Divalproex Sodium [Depakote] 500 mg PO BID 06/08/18 Glucosa Mullins 2Kcl/Chondroitin Mullins 1 each PO BID 06/08/18 [Glucosamine & Chondroitin Cap] Lactobacillus Acidophilus [Bacid -] 1 each PO TID 06/08/18 Latanoprost 0.005% Eye Drops 1 drop OU HS 06/08/18 [Xalatan 0.005% Eye Drops -] Potassium Chloride [Klor-Con M20] 20 meq PO DAILY 06/08/18 Ranitidine HCl [Acid Contact Center Assistant] 75 mg PO BID 06/08/18 Risperidone 0.75 mg PO HS 06/08/18 Sertraline HCl [Zoloft -] 75 mg PO HS 06/08/18 Timolol 0.5% [Timoptic 0.5%] 1 drop OU BID 06/08/18 Vancomycin HCl 250 mg PO Q6H 06/08/18 Discharge in am if stable
[2018-06-13] MEDS: TIMOLOL MALEATE 0.5% GFS OPHTHALMIC SOLN 5 ML BOTTLE OU SCH (12:37)
[2018-06-13] MEDS: risperiDONE 0.5 MG TABLET (FP) PO SCH (22:07)
[2018-06-13] MEDS: SERTRALINE HCL 50 MG, SERTRALINE HCL 25 MG PO SCH (22:10)
[2018-06-13] MEDS: LATANOPROST 0.005% OPHTH SOLN 2.5ML BOTTLE OU SCH (22:10)
[2018-06-14] MEDS: VANCOMYCIN 250 MG/5 ML ORAL SOLUTION PO SCH ×4 (00:19→17:10)
[2018-06-14] MEDS: HEPARIN NA (PORCINE) 5,000 UNITS/ML 1ML VIAL SQ SCH ×2 (06:18→14:01)
[2018-06-14 08:01] LABS: BASO % 0.1 % (0-2.0); EOS % 0.5 % (0-4.5); HEMATOCRIT 35.4 % (32.4-45.2); HEMOGLOBIN 11.8 GM/dL (10.7-15.3); LYMPH % 16.9 % (8-40); MCH 30.6 pg (25.7-33.7); MCHC 33.5 g/dl (32.0-36.0); MEAN CELL VOLUME 91.3 fl (80-96); MONO % 13.4 % (3.8-10.2); NEUT % 69.1 % (42.8-82.8); PLATELET COUNT 142 K/MM3 (134-434); RBC 3.88 M/mm3 (3.60-5.2); RDW 14.9 % (11.6-15.6); WHITE BLOOD COUNT 5.9 K/mm3 (4.0-10.0)
[2018-06-14 08:34] LABS: ALBUMIN 2.5 g/dl (3.4-5.0); ANION GAP 6 (8-16); BLOOD UREA NITROGEN 14 mg/dL (7-18); CALCIUM 9.1 mg/dL (8.5-10.1); CHLORIDE 115 mmol/L (98-107); CO2 24 mmol/L (21-32); CREATININE 1.3 mg/dL (0.55-1.02); GLUCOSE,RANDOM 93 mg/dL (74-106); PHOSPHOROUS 3.6 mg/dL (2.5-4.9); POTASSIUM 3.7 mmol/L (3.5-5.1); SGOT/AST 11 U/L (15-37); SGPT/ALT 12 U/L (12-78); SODIUM 145 mmol/L (136-145)
[2018-06-14 08:36] LABS: ALK PHOS 53 U/L (45-117); BILIRUBIN,TOTAL 0.2 mg/dL (0.2-1.0); MAGNESIUM 1.9 mg/dL (1.8-2.4); TOT PROT 5.1 g/dl (6.4-8.2)
[2018-06-14] MEDS ORDERED: PT OWN MED DRAWER 7, Y5N ONE (10:19)
[2018-06-14] MEDS: DIVALPROEX NA *ER* EXTEND REL 500 MG TABLET.SA (FP) PO SCH (10:31)
[2018-06-14] MEDS: amLODIPine BESYLATE 10 MG TABLET (FP) PO SCH (10:32)
[2018-06-14] MEDS: LACTOBACILLUS ACIDOPHILUS 1 TABLET PO SCH (10:32)
[2018-06-14] MEDS: TIMOLOL MALEATE 0.5% GFS OPHTHALMIC SOLN 5 ML BOTTLE OU SCH (10:32)
[2018-06-14] MEDS: CYANOCOBALAMIN 1,000 MCG TABLET (FP) PO SCH (10:32)
[2018-06-14] MEDS: POTASSIUM CHLORIDE TABS 20 MEQ TABLET.ER (FP) PO SCH (10:32)
[2018-06-14] MEDS: RANITIDINE HCL 150 MG TABLET (FP) PO SCH (10:45)
[2018-06-14 15:02] VITALS: BP 111/67; PULSE 80; TEMP 98.4
--- NOTE | 2018-06-14 16:58 | DS ---
Physical Exam: SUBJECTIVE: Patient seen and examined and bedside. pt having more formed BM. still feeling a little bloated but improving. says she needs help eating. denies Fever, chills, CP, SOB, N/V, urinary sxs OBJECTIVE: Vital Signs Period Temp Pulse Resp BP Sys/St Pulse Ox Last 24 Hr 97.8 F-98.4 F 68-83 16-20 111-139/67-77 95-95 PHYSICAL EXAM GENERAL: Awake and alert, no acute distress HEAD: NCAT EYES: PERRL, no scleral icterus EARS, NOSE, THROAT: some difficulty hearing at baseline. MMM NECK: supple without lymphadenopathy LUNGS: crackles at bases. no wheezes HEART: RRR normal S1 and S2 without m/r/g ABDOMEN: Soft, mild distension, nontender to palpation, +BS MUSCULOSKELETAL: No bony deformities or tenderness. UPPER EXTREMITIES: 2+ pulses, warm, well-perfused. No cyanosis. No clubbing. No peripheral edema. LOWER EXTREMITIES: 2+ pulses, warm, well-perfused. No calf tenderness. TEDs, legs elevated NEUROLOGICAL: Cranial nerves II-XII grossly intact. SKIN: Warm, dry, normal turgor, no rashes or lesions noted LABS Laboratory Results - last 24 hr 06/14/18 06/14/18 07:00 07:00 WBC 5.9 RBC 3.88 Hgb 11.8 Hct 35.4 MCV 91.3 MCH 30.6 MCHC 33.5 RDW 14.9 Plt Count 142 MPV 9.0 Absolute Neuts (auto) 4.1 Neutrophils % 69.1 Lymphocytes % 16.9 D Monocytes % 13.4 H Eosinophils % 0.5 Basophils % 0.1 Nucleated RBC % 0 Sodium 145 Potassium 3.7 Chloride 115 H Carbon Dioxide 24 Anion Gap 6 L BUN 14 Creatinine 1.3 H Creat Clearance w eGFR 39.82 Random Glucose 93 Calcium 9.1 Phosphorus 3.6 Magnesium 1.9 Total Bilirubin 0.2 AST 11 L ALT 12 Alkaline Phosphatase 53 Total Protein 5.1 L Albumin 2.5 L HOSPITAL COURSE: Date of Admission:06/08/18 Date of Discharge: 06/14/18 77 yo female with diagnosed C-dif in April [facility] HTN, Bipolar disorder , frequent falls, Primary hypoparathyroidism, GERD, polio w/ residual R sided weakness, glaucoma, and CKD, p/w chronic diarrhea for 6 weeks already treated with 2 courses of Flagyl and started on vanco po outpt with no improvement. Admitted for recurrent Diarrhea likely 2/2 refractory C-diff. Pt was afebrile w / no leukocytosis. UA and CXR were neg for infection. ID was consulted and pt was successfully tx w/ IV flagyl and PO vanc. Diarrhea improved and pt was found to have more formed stools. Cdiff toxin and Ag and PCR came back negative. Pt had TARA on CKD 2/2 dehydration that improved w/ IVF. Renal US showed b/l chronic kidney disease changes. pt also had multiple electrolyte abnormalities 2/2 diarrhea that were corrected appropriately. Pt tolerated PO well. Pt is stable and ready for discharge back to the assisted. Pt will complete tx w/ vanc PO for 10dys Minutes to complete discharge: 35 Discharge Summary Reason For Visit: DIARRHEA, HYPOKALEMIA, C-DIFF Current Active Problems Clostridium difficile diarrhea (Acute) Enterocolitis (Acute) Condition: Stable - Instructions Diet, Activity, Other Instructions: You were admitted for recurrent diarrhea We treated you with antibiotics which improved your diarrhea. Please continue taking vancomycin for your diarrhea for 10 more days Please resume your home medications as before coming to the hospital Please follow up with your primary care physician in 1 week Please follow up with your infectious disease doctor in 2 week If you experience any worsening of your diarrhea, fevers, chills, abdominal pain , blood in your stools, nausea, vomiting, please call 911 or come to the ER. Referrals: Abel Levin MD [Primary Care Provider] - 1 Week Kody Nunn MD [Staff Physician] - 2 Weeks Disposition: [facility]NS/HOME HEALTH CARE - Home Medications Comprehensive Discharge Medication List: Ambulatory Orders Amlodipine Besylate [Norvasc -] 10 mg PO DAILY 06/08/18 Cholestyramine/Aspartame [Cholestyramine Light Packet] 4 gm PO BID 06/08/18 Cyanocobalamin (Vitamin B-12) [Vitamin B-12] 1,000 mcg PO DAILY 06/08/18 Divalproex Sodium [Depakote] 500 mg PO BID 06/08/18 Glucosa Mullins 2Kcl/Chondroitin Mullins [Glucosamine & Chondroitin Cap] 1 each PO BID 05/19 Lactobacillus Acidophilus [Bacid -] 1 each PO TID 06/08/18 Latanoprost 0.005% Eye Drops [Xalatan 0.005% Eye Drops -] 1 drop OU HS 06/08/18 Ranitidine HCl [Acid Industrial Renderer] 75 mg PO BID 06/08/18 Risperidone 0.75 mg PO HS 06/08/18 Sertraline HCl [Zoloft -] 75 mg PO HS 06/08/18 Timolol 0.5% [Timoptic 0.5%] 1 drop OU BID 06/08/18 Vancomycin Oral Solution 125 mg PO Q6H 10 Days #100 ml 06/14/18 This patient is new to me today: Yes Date on this admission: 06/14/18 Emergency Visit: Yes ED Registration Date: 06/08/18 Care time: The patient presented to the Emergency Department on the above date and was hospitalized for further evaluation of their emergent condition. Critical Care patient: No - Discharge Referral Referred to [facility] No
== END 2018-06-14 20:21 | DRG 372 ==
LOC: JER 16:23 → JERBED 20:14 → OBSVTOIN 06-08 04:02 → J8W 06-08 05:46
PROVIDERS: ADMIT Internal Medicine; ATTEND Internal Medicine
DX: A04.71 Enterocolitis due to Clostridium difficile, recurrent (principal); N17.9 Acute kidney failure, unspecified; E87.0 Hyperosmolality and hypernatremia; E87.6 Hypokalemia; B91 Sequelae of poliomyelitis; K21.9 Gastro-esophageal reflux disease without esophagitis; H40.9 Unspecified glaucoma; F31.9 Bipolar disorder, unspecified; E20.9 Hypoparathyroidism, unspecified; I12.9 Hypertensive chronic kidney disease with stage 1 through stage 4 chronic kidney disease, or unspecified chronic kidney disease; N18.9 Chronic kidney disease, unspecified; E86.0 Dehydration; R19.7 Diarrhea, unspecified; Z66 Do not resuscitate
CPT/HCPCS: 36415; 71045-TC-FY; 76775-TC; 80048; 80053; 81003; 82436; 83735; 84100; 84133; 84300; 85025; 85027; 87205; 87324; 87449; 87493; 93005; 93010; 93970-TC; 97116-GP; 97161-GP; 99284-25; G0378; J1644